=== PATIENT | male | born 1965 | race Caucasian/White ===

== ENCOUNTER 2024-06-08 10:07 | Inpatient (IN) | payer BC, SELFPAY ==
--- NOTE | 2024-06-08 | XR_ITS ---
Examination: MRI brain without intravenous contrast. Date and time of exam: June 09, 2024 1248 hours INDICATIONS: Onset vertigo slurred speech beginning yesterday Technique: Multiple axial and sagittal images of the brain obtained. Siemens high-resolution 1.5 Jesica short bore scanners utilized. Sagittal sections, T1-weighted, TR 500, TE 14, are performed. Axial sections proton-density and T2-weighted have been obtained. Inversion recovery axial images, TR 9, 260, TE 111, TI 2500. Diffusion weighted images, axial sections, TR 4800, TE 128, B value 1000 Axial sections, ADC map, TR 4800, TE 128 Findings: Enlargement of the sella turcica is not present. The optic chiasm and infundibular are not remarkable. Prepontine and interpeduncular cisterns are not enlarged. There is no localized enlargement of the medulla or leigh ann. Fourth ventricle and cerebellar tonsils appear normal in position. No subacute area of hemorrhage density is seen. Mass in the cerebellopontine angle region is not evident. Globes symmetrical. Orbital musculature including medial lateral rectus muscles do not exhibit abnormality. Diffusion-weighted images demonstrate 16mm focus restricted diffusion right thalamus. Increased white matter signal prominent Mass effect upon the ventricular system is not identified. Impression: 16mm acute right thalamic infarct
[2024-06-08 10:12] VITALS: BMI 40.6
--- NOTE | 2024-06-08 10:53 | XR_ITS ---
Examination: CT brain head without contrast. 2-D sagittal coronal reconstructions Date and time of exam:June 08, 2024 1105 hours INDICATIONS: Onset dizziness slurred speech beginning this morning CTDI: vol (mGy):58.9 DLP: (mGycm):1102 Technique: Multiple CT axial sections of the brain have been obtained, 5 mm slice thickness. Contrast has not been administered. 2-D sagittal, coronal reconstructions have been obtained Low dose protocols were performed. One or more of the following dose reduction techniques were used; automated exposure control, adjustment of the mA and/or KV according to patient size, use of iterative reconstruction technique. Findings: No significant ventricular enlargement. Intra-axial or extra-axial hemorrhage density is not seen. No mass effect or midline shift Basal cisterns are not remarkable. Fourth ventricle is midline. Cranial vault intact. Slightly prominent posterior contrast opacified sagittal sinus axial image 7 Impression: Negative for acute hemorrhage, mass effect or midline shift Mildly prominent posterior opacified sagittal sinus, axial image 7, clinical correlation advised Given the patient's presentation, consider brain MRI MRA without contrast, stroke protocol, follow-up
--- NOTE | 2024-06-08 10:54 | EDRME_ITS ---
Rapid Medical Screening Exam [facility] Arrival date/time: 06/08/24 10:07 59-year-old male with no known medical history presents to the emergency room with a chief complaint of dizziness, lightheadedness, slurred speech x 2 days. Patient states 2 days ago he had an episode of acute dizziness followed by slurred speech and unable to keep his balance. Patient states minutes later he felt better and decided not to come to the emergency room until today when his knees told him that he does not sound the same and his speech sounds slurred. Patient denies any unilateral numbness or any symptoms that began today. I have greeted and performed a focused initial assessment of this patient. A comprehensive ED assessment and evaluation of the patient, analysis of all test results, and completion of the medical decision making process will be conducted by additional ED providers. Chief Complaint: Dizziness Vital signs reviewed by provider: Yes
[2024-06-08] MEDS: MECLIZINE HCL 25 MG TABLET PO (11:00)
[2024-06-08 11:09] VITALS: BP 187/121; PULSE 98; RESP 19; TEMP 36.8; O2SAT 98
[2024-06-08 11:42] LABS: Alanine Aminotransferase 18 U/L (10-49); Albumin, Serum 4.7 gm/dL (3.5-5.0); Albumin/Globulin Ratio 1.6 (1.2-2.2); Alkaline Phosphatase 95 U/L (46-116); Anion Gap 7 (7-16); Aspartate Amino Transferase 20 U/L (0-34); BUN/Creatinine Ratio 9 Ratio (12-20); Bilirubin,Total 0.8 mg/dL (0.3-1.2); Blood Urea Nitrogen 11 mg/dL (9-23); Calcium 9.6 mg/dL (8.3-10.6); Calcium (Corrected) 9.6 mg/dL (8.5-10.1); Carbon Dioxide 26.8 mMol/L (20.0-31.0); Chloride 106 mMol/L (98-107); Creatinine (Component) 1.2 mg/dL (0.6-1.3); Estimated Creatinine Clearance 105.4 mL/min (>60); Glucose 106 mg/dL (74-106); Osmolality,Calculated 278 (275-295); Potassium 4.1 mMol/L (3.4-5.1); Sodium 140 mMol/L (136-145); Total Protein 7.7 gm/dL (5.7-8.2); Troponin I < 0.020 ng/mL (0.0-0.045); eGFR > 60 See Note
[2024-06-08 11:44] LABS: Basophils # (Auto) 0.1 Thou/mm3 (0.0-0.2); Basophils % (Auto) 1 % (0-2.5); Eosinophils # (Auto) 0.1 Thou/mm3 (0.0-0.5); Eosinophils % (Auto) 2 % (0-10); Hematocrit 48.6 % (41.0-53.0); Hemoglobin 16.2 g/dL (13.5-16.0); Immature Granulocytes % (Auto) 0 % (0-0); Immature Granulocytes Auto 0.01 Thou/mm3 (0.00-0.00); Lymphocytes # (Auto) 1.6 Thou/mm3 (1.0-4.8); Lymphocytes % (Auto) 23 % (10-50); Mean Corpuscular HGB Conc 33.3 g/dl (31.0-37.0); Mean Corpuscular Hemoglobin 30.3 pg (25.0-35.0); Mean Corpuscular Volume 91 fL (80-100); Monocytes # (Auto) 0.6 Thou/mm3 (0.0-0.8); Monocytes % (Auto) 9 % (0-12); Neutrophils # (Auto) 4.4 Thou/mm3 (1.8-7.7); Neutrophils % (Auto) 65 % (37-80); Nucleated Red Blood Cell % 0 /100 WBC (0); Platelet Count 301 Thou/mm3 (140-440); Red Blood Count 5.35 Miln/mm3 (4.50-5.90); White Blood Count 6.7 Thou/mm3 (3.8-10.6)
[2024-06-08 11:47] LABS: B-Type Natriuretic Peptide < 20 pg/mL (0-100)
[2024-06-08 14:36] VITALS: BP 175/115; PULSE 98; RESP 16; TEMP 36.9; O2SAT 94
--- NOTE | 2024-06-08 14:53 | EDNOTE_ITS ---
<Statement entered by Lisa Bustamante MD - 06/08/24 17:41> As co-signing physician, I was present and available for consult prn. I concur with the plan and care as documented by the midlevel provider. ED General RME/HPI General Chief complaint: Dizziness Stated complaint: FALL YESTERDAY DIZZINESS & SLURRED SPEACH TODAY Time Seen by Provider: 06/08/24 14:36 Arrival date/time: 06/08/24 10:07 CC: Altered balance of lower extremities and slurred speech HPI last known normal was June 06, 2024 at approximately 6 PM. Since then the patient has been noted by family members to have slurred speech and is noticed that he has continuous gait problems while denying dizziness. Patient denies fall shortness of breath difficulty breathing altered mentation. RME / HPI RME / HPI narrative: 06/08/24 10:07 59-year-old male with no known medical history presents to the emergency room with a chief complaint of dizziness, lightheadedness, slurred speech x 2 days. Patient states 2 days ago he had an episode of acute dizziness followed by slurred speech and unable to keep his balance. Patient states minutes later he felt better and decided not to come to the emergency room until today when his knees told him that he does not sound the same and his speech sounds slurred. Patient denies any unilateral numbness or any symptoms that began today. I have greeted and performed a focused initial assessment of this patient. A comprehensive ED assessment and evaluation of the patient, analysis of all test results, and completion of the medical decision making process will be conducted by additional ED providers. Related Data Previous Rx's ?Medication ?Instructions ?Recorded hydrocodone 5 mg-acetaminophen 325 1 tab PO Q6H PRN pa in #10 tabs /05/20 mg tablet ([place]) tamsulosin 0.4 mg capsule (Flomax) 0.4 mg PO QDAY #30 caps 04/30/19 hydrocodone 5 mg-acetaminophen 325 1 tab PO Q4H PRN pa in #14 tabs 03/06/20 mg tablet ([place]) Allergies Allergy/AdvReac Type Severity Reaction Status Date / Time No Known Allergies Allergy Verified 06/08/24 10:12 Review of Systems Review of Systems Narrative Review of Systems: GEN: No fever, no chills, no weight loss EYES: No discharge, no visual changes, no pain HEENT: No ear pain, no congestion, no sore throat PULM: No shortness of breath, no cough, no congestion CV: No chest pain, no dyspnea on exertion, no palpitations GI: No nausea, no vomiting, no diarrhea, no pain, no constipation : No frequency, no urgency, no dysuria MUSC/SKEL: No joint pain, no back pain SKIN: No rash PSYCH: No hallucinations, no depression HEME/LYMPH: No easy bleeding or bruising tendencies NEURO: No weakness, no headache Past Medical History Past Medical History CARDIAC: Negative Cardiac Disorders or Congestive Heart Failure RESPIRATORY: Negative Chronic Obstructive Pulmonary Disease (COPD) or Asthma GENITOURINARY: Positive Kidney Stones; Negative Renal Disease ENDOCRINE: Negative Diabetes Mellitus Type 1 or Diabetes Mellitus Type 2 HEMATOLOGIC: Negative Sickle Cell Disease Social History SMOKING STATUS: Never smoker SUBSTANCE USE: does not use ED Exam Narrative Physical exam: [General: Morbidly obese not in any acute distress Head normocephalic HEENT: Eyes pupils are PERRLA EOMs intact mouth pink moist membranes uvula is midline swallow symmetrical phonation is normal. All other HEENT is within acceptable limits Neck is supple nontender no JVD no edema Chest equal chest rise nontender to palpation Respiratory: Clear to auscultation no wheezes crackles or rubs CV: Rate rhythm is regular no murmurs rubs or clicks Abdomen is distended secondary to body habitus soft nontender no masses positive bowel sounds all 4 quadrants Back: No CVA tenderness no spinous process tenderness from cervical spine thoracic and lumbar spine Skin: Intact no petechiae rash induration ulceration or crepitus Extremities: Moving all extremity against resistance cap refill less than 2 seconds neurosensory intact Neuro: Awake alert oriented x3 Glascow coma 15 no focal deficits] subtle slurred speech, no word salad no difficulty with word or sentence assembly. Syntax is appropriate all responses to questions are appropriate. Course Quality Measures none Orders Category Date Time Status Bedside Blood Glucose NOW Care 06/08/24 10:53 Active EKG (ED ONLY) *Do not use* NOW Care 06/08/24 10:53 Completed MRI Screening NOW Care 06/08/24 14:52 Active Consult to Neurology / Tele-Neurology Stat Cons 06/08/24 15:[address] head/brain wo con Stat Exams 06/08/24 10:53 Completed EKG (ED Only) Stat Exams 06/08/24 10:53 Ordered MR head/brain wo con Stat Exams 06/08/24 Ordered BNP [B-Type Natriuretic Peptide] Stat Lab 06/08/24 11:12 Completed CBC Stat Lab 06/08/24 11:12 Completed Comprehensive Metabolic Panel Stat Lab 06/08/24 11:12 Completed Troponin I Stat Lab 06/08/24 11:12 Completed Urinalysis Stat Lab 06/08/24 10:53 Ordered Urine Culture Stat Lab 06/08/24 10:53 Ordered Aspirin Med 06/08/24 15:01 Discontinued 325 mg PO X1 ONE Meclizine HCl [Antivert] Med 06/08/24 10:53 Discontinued 25 mg PO X1 ONE hydrALAZINE INJ [Apresoline Inj] Med 06/08/24 14:58 Discontinued 20 mg IV X1 ONE Vital Signs Vital signs: Vital Signs Temperature 98.3 F 06/08/24 11:09 Pulse Rate 98 06/08/24 11:09 Respiratory Rate 19 06/08/24 11:09 Blood Pressure 187/121 H 06/08/24 11:09 Pulse Oximetry (%) 98 06/08/24 11:09 Oxygen Delivery Method Room Air 06/08/24 11:09 [facility] Patient data External records reviewed:: [facility] previous records Clinical information provided by:: patient Social determinants that could affect healthcare access:: none Patient has the following chronic illnesses:: Morbid obesity How is presenting disease/condition affected by chronic disease/condition?: u neffected by Evaluation data The following diagnostics were reviewed and interpreted by me:: lab results and radiology exam(s) Lab and/or radiology exams considered but not ordered:: CBC shows no acute leukocytosis anemia thrombocytopenia CMP shows no acute electrolyte imbalances renal impairment transaminitis or T. bili elevation Troponin is negative BNP is negative CT head is negative for any acute finding. Interpretation Summary: Highly suspicious for stroke probably posterior. Patient's case discussed with Dr. Mcclain, neurologist who wants the patient started on aspirin get his pressures down admit to the hospital with an MRI ordered. Patient's case and clinical finding laboratory results all discussed with , who agrees to accept the patient for admission none Medications Medications considered but not ordered:: None Medication administrations:: Medication Administration History Discontinued Medications Aspirin (Aspirin 325 Mg Tablet) 325 mg PO X1 ONE Stop: 06/08/24 15:02 Last Admin: 06/08/24 15:11 Dose: 325 mg Documented By: LP Hydralazine HCl (Hydralazine Inj 20 Mg/Ml Vial) 20 mg IV X1 ONE Stop: 06/08/24 14:59 Last Admin: 06/08/24 15:10 Dose: 20 mg Documented By: LP Meclizine HCl (Meclizine Hcl 25 Mg Tablet) 25 mg PO X1 ONE Stop: 06/08/24 10:54 Last Admin: 06/08/24 11:00 Dose: 25 mg Documented By: ALEKSANDRA None Consultations Consultation(s) initiated? (list below): Yes Consultation #1 (Physician, Specialty, Details): The garage and Time: 15:00 Diagnosis Differential Diagnosis ED Complaint MDM: CVA TIA hypertension Most likely diagnosis given after review of the tests above:: CVA hypertension undiagnosed Admission Indicated Admission indicated?: indicated Explain why admission is indicated or not indicated:: Requires further medical management Admission Request Was there a request for admission?: No Disposition Plan Disposition Plan: Admit Medical Decision Making Differential Diagnosis Differential Diagnosis: CVA TIA hypertension Lab Data 06/08/24 11:12 06/08/24 11:12 Labs: Lab Results 06/08/24 Range/Units 11:12 WBC 6.7 (3.8-10.6) Thou/mm3 RBC 5.35 (4.50-5.90) Miln/mm3 Hgb 16.2 H (13.5-16.0) g/dL Hct 48.6 (41.0-53.0) % MCV 91 (80-100) fL MCH 30.3 (25.0-35.0) pg MCHC 33.3 (31.0-37.0) g/dl RDW Std Deviation 43.0 (35.1-43.9) fL Plt Count 301 (140-440) Thou/mm3 Neut % (Auto) 65 (37-80) % Lymph % (Auto) 23 (10-50) % [place] % (Auto) 9 (0-12) % Eos % (Auto) 2 (0-10) % Baso % (Auto) 1 (0-2.5) % Neut # (Auto) 4.4 (1.8-7.7) Thou/mm3 Lymph # (Auto) 1.6 (1.0-4.8) Thou/mm3 [place] # (Auto) 0.6 (0.0-0.8) Thou/mm3 Eos # (Auto) 0.1 (0.0-0.5) Thou/mm3 Baso # (Auto) 0.1 (0.0-0.2) Thou/mm3 Immature Gran # (Auto) 0.01 H (0.00-0.00) Thou/mm3 Absolute Nucleated RBC 0.00 (0.00-0.00) Thou/mm3 Immature Gran % 0 (0-0) % Nucleated RBC % 0 (0) /100 WBC Sodium 140 (136-145) mMol/L Potassium 4.1 (3.4-5.1) mMol/L Chloride 106 (98-107) mMol/L Carbon Dioxide 26.8 (20.0-31.0) mMol/L Anion Gap 7 (7-16) BUN 11 (9-23) mg/dL Creatinine 1.2 (0.6-1.3) mg/dL Estim Creat Clear Calc 105.4 (>60) mL/min eGFR > 60 (60 - ) See Note BUN/Creatinine Ratio 9 L (12-20) Ratio Glucose 106 (74-106) mg/dL Calculated Osmolality 278 (275-295) Calcium 9.6 (8.3-10.6) mg/dL Corrected Calcium 9.6 (8.5-10.1) mg/dL Total Bilirubin 0.8 (0.3-1.2) mg/dL AST 20 (0-34) U/L ALT 18 (10-49) U/L Alkaline Phosphatase 95 (46-116) U/L Troponin I < 0.020 (0.0-0.045) ng/mL B-Natriuretic Peptide < 20 (0-100) pg/mL Total Protein 7.7 (5.7-8.2) gm/dL Albumin 4.7 (3.5-5.0) gm/dL Globulin 3.0 (2.3-3.5) gm/dL Albumin/Globulin Ratio 1.6 (1.2-2.2) Discharge Plan Plan Patient Disposition: Other Care w/in Hosp ([facility]) Prescriptions/Referrals Prescriptions/Med Rec: No Action tamsulosin [Flomax] 0.4 mg capsule 0.4 mg PO QDAY Qty: 30 0RF hydrocodone-acetaminophen [[place]] 5-325 mg tablet 1 tab PO Q6H MDD 4 PRN (Reason: pain) Qty: 10 0RF hydrocodone-acetaminophen [[place]] 5-325 mg tablet 1 tab PO Q4H MDD 4 PRN (Reason: pain) Qty: 14 0RF Referrals: Warner Abbasi MD [Primary Care Provider] - In 1 week Problem List Clinical Impression: Hypertension, CVA (cerebral vascular accident) Patient/Caregiver Discharge Instructions Print Language: Australian Stand Alone Forms: Hannah Award Info., Patient Portal Info Letter PA/DIE CUTTER DIAMOND Supervising Physician PA/DIE CUTTER DIAMOND Supervising Physician: Polo Matthew ENP
[2024-06-08 15:10] VITALS: BP 175/115; PULSE 91
[2024-06-08] MEDS: hydrALAZINE INJ 20 MG/ML VIAL IV (15:10)
[2024-06-08] MEDS: Aspirin 325 MG TABLET PO (15:11)
--- NOTE | 2024-06-08 16:25 | ESHP_ITS ---
<Statement entered by Crow Everett MD - 06/10/24 07:58> Senior Resident Attestation: I supervised/discussed management plan with manager internship physician Dr. Stein, and was involved in the care of this patient. I personally saw and examined the patient and discussed the assessment and plan with the entire medicine team, including my attending. I agree with the assessment and plan as documented. Patient's care was discussed with attending physician, Dr. Le. Crow Everett MD PGY-2. Documentation for date of: 06/08/24 HPI History of Present Illness Chief complaint: Dizziness History of present illness: 59-year-old male with significant past medical history of hypertension, BPH presented to the hospital with chief complaints of dizziness since 2 days and slurring of speech since 1 day. Patient was apparently normal 2 days ago, on 06/06/2024 patient is watching television and when he tried to walk to the bathroom he noticed to sway onto his left side, felt dizzy following which he will lie down for few minutes and later the dizziness subsided. Later he did not feel any swaying but on the day of admission, his niece noted mild slurring of speech for which patient came to the hospital. Patient denies weakness in the extremities, involuntary movements, deviation of mouth, sensory loss, bowel or bladder incontinence, hearing loss, tinnitus, headache ED course: - Vitals at the time of admission blood pressure 187/121 mmHg, pulse rate 98 bpm, respiratory rate 19/min, temperature 98.3 ?F, SpO2 98% with room air - Labs done at the time of admission were significant for Hb 16.2 - Head CT is negative for acute stroke, hemorrhage and showed mild opacification in the posterior sagittal sinus Past medical history: Hypertension, BPH Past surgical history: Not significant Social history: Denies smoking, alcohol, other illicit drug abuse. Allergies: NKDA Family history: Positive for porphyria in father Review of Systems Review of Systems Systems Reviewed: All systems reviewed, normal except as documented Past Medical History Past Medical History CARDIAC: Negative Cardiac Disorders or Congestive Heart Failure RESPIRATORY: Negative Chronic Obstructive Pulmonary Disease (COPD) or Asthma GENITOURINARY: Positive Kidney Stones; Negative Renal Disease ENDOCRINE: Negative Diabetes Mellitus Type 1 or Diabetes Mellitus Type 2 HEMATOLOGIC: Negative Sickle Cell Disease Social History SMOKING STATUS: Never smoker SUBSTANCE USE: does not use Exam Vital Signs Temp Pulse Resp BP Pulse Ox O2 Del Method 98.4 F 91 16 175/115 H 94 L Room Air 06/08/24 14:36 06/08/24 15:10 06/08/24 14:36 06/08/24 15:10 06/08/24 14:36 06/08/24 14:36 Narrative Exam General: Awake. HEENT: Normocephalic, atraumatic, mucous membranes moist. Heart: Regular rate and rhythm, no murmurs. Lungs: Clear to auscultation with no wheezing or crackles. Abdomen: Soft, nondistended, nontender, positive bowel sounds. ?No guarding or rebound tenderness. Neurologic: Alert and oriented x3, no gross neurological deficit, and patient able to move all 4 extremities. Noted mild swaying to the left on closure of his eyes Extremities: No edema. Skin: No rash or ecchymoses. Results: Labs 06/09/24 05:15 06/09/24 05:15 Labs: Short CBC 06/08/24 Range/Units 11:12 WBC 6.7 (3.8-10.6) Thou/mm3 Hgb 16.2 H (13.5-16.0) g/dL Hct 48.6 (41.0-53.0) % Plt Count 301 (140-440) Thou/mm3 BMP 06/08/24 11:12 Sodium 140 Potassium 4.1 Chloride 106 Carbon Dioxide 26.8 BUN 11 Creatinine 1.2 Glucose 106 Calcium 9.6 Cardiac Enzymes 06/08/24 Range/Units 11:12 Troponin I < 0.020 (0.0-0.045) ng/mL Liver Function 06/08/24 Range/Units 11:12 Total Bilirubin 0.8 (0.3-1.2) mg/dL AST 20 (0-34) U/L ALT 18 (10-49) U/L Alkaline Phosphatase 95 (46-116) U/L Albumin 4.7 (3.5-5.0) gm/dL Quality Measures Quality Measures none Medications Home Medications and Allergies Home Medications ?Medication ?Instructions ?Recorded ?Confirmed ?Type lisinopril 20 mg tablet 20 mg PO QDAY 06/08/2406/08 History Allergies Allergy/AdvReac Type Severity Reaction Status Date / Time No Known Allergies Allergy Verified 06/08/24 10:12 Visit Medications Acetaminophen (Acetaminophen 325 Mg Tablet) 650 mg PO Q6H PRN PRN Reason: Fever >101.5 Stop: 07/08/24 16:15 Aspirin (Aspirin Ec 81 Mg Tabec) 81 mg PO QDAY CARRILLO Stop: 07/09/24 08:59 Atorvastatin Calcium (Atorvastatin Calcium 20 Mg Tablet) 40 mg PO HS CARRILLO Stop: 07/08/24 20:59 Clopidogrel Bisulfate (Clopidogrel Bisulfate 75 Mg Tablet) 75 mg PO QDAY CARRILLO Stop: 07/09/24 08:59 Docusate Sodium (Docusate Sod 100 Mg Capsule) 100 mg PO QDAY PRN; Protocol PRN Reason: CONSTIPATION Stop: 07/08/24 16:15 Labetalol HCl (Labetalol Inj 5 Mg/Ml Vial 20 Ml) 10 mg IVP X1 PRN PRN Reason: sbp>220 Stop: 07/08/24 16:22 Ondansetron HCl (Ondansetron Inj 2 Mg/Ml Inj 2 Ml) 4 mg IV Q6H PRN; Protocol PRN Reason: NAUSEA OR VOMITING Stop: 07/08/24 16:15 Discontinued Medications Aspirin (Aspirin 325 Mg Tablet) 325 mg PO X1 ONE Stop: 06/08/24 15:02 Last Admin: 06/08/24 15:11 Dose: 325 mg Enoxaparin Sodium (Enoxaparin Sod Inj 40 Mg/0.4 Ml Syringe) 40 mg SC QDAY CARRILLO Stop: 06/23/24 08:59 Hydralazine HCl (Hydralazine Inj 20 Mg/Ml Vial) 20 mg IV X1 ONE Stop: 06/08/24 14:59 Last Admin: 06/08/24 15:10 Dose: 20 mg Meclizine HCl (Meclizine Hcl 25 Mg Tablet) 25 mg PO X1 ONE Stop: 06/08/24 10:54 Last Admin: 06/08/24 11:00 Dose: 25 mg Assessment & Plan Plan 59-year-old male with significant past medical history of hypertension, BPH presented to the hospital with chief complaints of dizziness since 2 days and slurring of speech since 1 day admitted for stroke rule out # Vertigo, resolved # To rule out posterior stroke - Presented to the hospital with complaints of 1 episode of vertigo 2 before the day of admission - Patient noted to have slurred speech by his niece on the day of admission - Vitals at the admission are stable except for elevated blood pressure 187/121 mmHg - Labs are significant for hemoglobin 16.2 - Head CT is negative for acute infarct/hemorrhage. Noted mild opacification in the posterior sagittal sinus - Received 325 mg aspirin in the ED Plan - Started on aspirin and clopidogrel - Started on atorvastatin 40 Mg p.o. at bedtime - Will allow permissive hypertension for today, labetalol as needed if blood pressure greater than 220/120 mmHg - MR brain is ordered - Echo ordered - HbA1c, lipid profile, TSH, B12 ordered - Dr Mcclain is consulted, will appreciate her recommendations - Physical therapy referral done # History of hypertension - Patient is using lisinopril 20 Mg p.o. daily at home - Will allow permissive hypertension for today and will restart blood pressure medications tomorrow - Labetalol as needed if blood pressure greater than 220/120 mmHg # History of BPH - Patient is using tamsulosin 0.4 Mg p.o. daily at home - Medication reconciliation is ordered - Will start tamsulosin once med rec is done Hospital Maintenance: Dispo: Telemetry DVT ppx: SCD GI ppx: Not needed Diet: Low-sodium IV lines: Peripheral Code status: Full code Patient plan of care was discussed with the attending physician, Dr. Le and senior resident Dr. Marguerite Stein, PGY1 Attending Provider Attestation/Addendum I attest that I was physically present for the evaluation, physical examination, lab and imaging review of the patient with the residents. I discussed the case with the residents and agree with the findings and plans of care as documented above. Patient is a 59 years old male with past medical history of hypertension, BPH who presents to the ED with complaints of dizziness, slurring of speech for 4 2 days. His family also noticed that he has asymmetry of his face. On exam, patient has mild asymmetry of his face. Sensation is intact, strength is normal and equal bilaterally. In the ED, blood pressure was 187/121, rest of the vitals were within normal limits. Head CT was obtained which was negative for acute hemorrhage, mass effect or midline shift but showed mild opacification in the posterior sagittal sinus. We will admit the patient to evaluate for dizziness and to rule out stroke. Started on antiplatelets and statin. Brain MRI ordered. We will also obtain hemoglobin A1c, lipid panel, echocardiography and neurology consult. Physical therapy and speech therapy referral ordered. We will allow for permissive hypertension for now, plan to restart antihypertensives tomorrow if patient continues to be hypertensive. Shameka eL MD
[2024-06-08 17:14] LABS: Collection Type, Urine Clean Catch; Squamous Epithelial Cell,Urine 0 /hpf (0-5)
[2024-06-08 17:27] LABS: Bilirubin,Urine Negative (Negative); Blood,Urine Negative (Negative); Clarity,Urine Clear (Clear/Hazy); Color,Urine Lt-Yellow (Lt Yel-Yel); Glucose, Urine Negative (Negative); Ketones,Urine Trace (Negative); Leukocyte Esterase,Urine Negative (Negative); Nitrite,Urine Negative (Negative); PH,Urine 6.5 (5.0-7.0); Protein,Urine Negative (Neg - Trace); RBC,Urine 5 /hpf (0-3); Specific Gravity,Urine 1.016 (1.001-1.035); Urobilinogen,Urine Negative mg/dL (0.0-1.0); WBC,Urine 2 /hpf (0-5)
[2024-06-08 18:00] VITALS: BP 144/89; PULSE 105; RESP 20; TEMP 36.8; O2SAT 94
--- NOTE | 2024-06-08 18:47 | PC.NURSE ---
REPORT CALLED TO YOLA ON TELE. PT WILL BE TRANSFERRED TO ROOM 271. DR. LOAIZA AT BEDSIDE NOT TO ASSESS PT.
[2024-06-08 20:00] VITALS: BP 145/98; PULSE 101; PULSE 103; RESP 13; TEMP 36.7; O2SAT 96
[2024-06-08] MEDS: ATORVASTATIN CALCIUM 20 MG TABLET 40 MG PO (20:05)
[2024-06-08 20:35] VITALS: BP 167/95; PULSE 110; RESP 17; TEMP 36.7; O2SAT 97
--- NOTE | 2024-06-08 21:54 | PD.RESEVENT ---
Documentation for date of: 06/08/24 Event Note Event Note: At approximately 2030 p.m. code STAR was called due to patient falling. Fall was witnessed by the Adelita RN, patient went to the bathroom, did not hit his head, reported that he felt dizzy after standing up, did not lose consciousness. On examination he is AO x 3, follows commands, strength is 5 out of 5 in extremities. Patient has mild facial droop and slurring of speech, which were reported by the patient to have started a few days ago. He also reports that dizziness started a few days ago. Patient denies pain, weakness, numbness. Blood pressure was in the range of 170s/110s, saturated well on room air. CT head today was negative for acute hemorrhage, mass effect or midline shift. Will continue with current management and fall precautions. Plan of care discussed with attending Dr. Cannon. Esther Shields MD, PGY 1.
[2024-06-08] MEDS: ACETAMINOPHEN 325 MG TABLET 650 MG PO (22:21)
--- NOTE | 2024-06-08 23:00 | PD.VCONSULT1 ---
Telemedicine visit statement This visit was conducted with the use of interactive audio and video telecommunications system that permits real time communication between the patient and the provider. Patient's verbal consent for virtual visit was obtained on 06/08/24 at 2300. Meds Home Medications and Allergies Home Medications ?Medication ?Instructions ?Recorded ?Confirmed ?Type lisinopril 20 mg tablet 20 mg PO QDAY 06/08/24 06/08/24 History Allergies Allergy/AdvReac Type Severity Reaction Status Date / Time No Known Allergies Allergy Verified 06/08/24 10:12 Virtual exam Vital Signs Temp Pulse Resp BP Pulse Ox O2 Del Method 98.0 F 103 H 13 145/98 H 96 Room Air 06/08/24 20:00 06/08/24 20:00 06/08/24 20:00 06/08/24 20:00 06/08/24 20:00 06/08/24 20:00 Results Labs 06/08/24 11:12 06/08/24 11:12 Labs: Short CBC 06/08/24 Range/Units 11:12 WBC 6.7 (3.8-10.6) Thou/mm3 Hgb 16.2 H (13.5-16.0) g/dL Hct 48.6 (41.0-53.0) % Plt Count 301 (140-440) Thou/mm3 BMP 06/08/24 11:12 Sodium 140 Potassium 4.1 Chloride 106 Carbon Dioxide 26.8 BUN 11 Creatinine 1.2 Glucose 106 Calcium 9.6 Cardiac Enzymes 06/08/24 Range/Units 11:12 Troponin I < 0.020 (0.0-0.045) ng/mL Liver Function 06/08/24 Range/Units 11:12 Total Bilirubin 0.8 (0.3-1.2) mg/dL AST 20 (0-34) U/L ALT 18 (10-49) U/L Alkaline Phosphatase 95 (46-116) U/L Albumin 4.7 (3.5-5.0) gm/dL Urine 06/08/24 Range/Units 17:00 Urine Color Lt-Yellow (Lt Yel-Yel) Urine Clarity Clear (Clear/Hazy) Urine pH 6.5 (5.0-7.0) Ur Specific [place] 1.016 (1.001-1.035) Urine Protein Negative (Neg - Trace) Urine Glucose (UA) Negative (Negative)
--- NOTE | 2024-06-08 23:08 | PD.NEUROCONS ---
History of Present Illness Data of Consult Requesting Physician: Shameka Le MD Primary Care Provider: Warner Abbasi MD Consult Narrative History of present illness: Mr. Escaalnte is a 59-year-old male with hypertension, BPH presented to the ER with complaints of dizziness for 2 days and slurring of speech for 1 day. Patient was apparently normal 2 days ago, on 06/06/2024 when he was watching television and when he tried to walk to the bathroom he noticed to sway onto his left side, felt dizzy following which he went to lie down for few minutes and later the dizziness subsided. He was able to walk with his family 1 mile without any support as he did not feel any imbalance but today, his niece noted mild slurring of speech for which patient came to the hospital. Patient denies any paresthesias or weakness in the extremities, dysphagia, hearing loss, tinnitus, or headache. No recent illnesses or sick contacts reported. No medication changes recently. Workup in the ER: - Vital signs: Blood pressure 187/121 mmHg, pulse rate 98 bpm, respiratory rate 19/min, temperature 98.3 ?F, SpO2 98% with room air - Labs: CBC: Nothing significant other than Hb 16.2, CMP unremarkable - Imaging study: Head CT is negative for acute stroke, hemorrhage and showed mild opacification in the posterior sagittal sinus Neurology was consulted to evaluate further. Patient is in the process of getting MRI brain to evaluate for posterior fossa. cc:: cc: Shameka Le MD Review of Systems Review of Systems Systems Reviewed: All systems reviewed, normal except as documented Meds Home Medications and Allergies Home Medications ?Medication ?Instructions ?Recorded ?Confirmed ?Type lisinopril 20 mg tablet 20 mg PO QDAY 06/08/24 06/08/24 History Allergies Allergy/AdvReac Type Severity Reaction Status Date / Time No Known Allergies Allergy Verified 06/08/24 10:12 Exam - Neurology Vital Signs Temp Pulse Resp BP Pulse Ox O2 Del Method 98.0 F 103 H 13 145/98 H 96 Room Air 06/08/24 20:00 06/08/24 20:00 06/08/24 20:00 06/08/24 20:00 06/08/24 20:00 06/08/24 20:00 Narrative Exam GENERAL APPEARANCE: Well-developed, obese built white male in no acute distress. HEENT: Normocephalic, atraumatic, extraocular movements intact. Pupils: Equal reacting to light and accommodation, NECK: Supple, no JVD or bruits. CARDIOVASULAR: Heart: S1, S2 heard, regular without S3-S4 or murmur no rubs or gallops. LUNGS/CHEST: Clear to auscultation bilaterally. No rails, rhonchi, or wheezing. Normal inspection. ABDOMEN: Soft, nontender, with normal bowel sounds. No pulsatile masses. No rebound, rigidity, or guarding. Normal inspection and palpation. EXTREMITIES: Normal inspection and palpation. No edema, clubbing or cyanosis. SKIN: Warm and dry without rashes. Normal inspection. MUSCULOSKELETAL: No cervical, thoracic, lumbar or midline bony tenderness. Normal inspection. NEURO: Alert, awake and oriented x3. Cranial nerves: II through XII grossly intact. Speech and language: Normal with no significant dysarthria or dysphasia. Motor system: Tone and bulk: Normal: Strength: 5 out of 5 in all 4 extremities; No pronator drift noted. Deep tendon reflexes: 2+ bilaterally symmetrical. Plantar reflex: Downgoing bilaterally. Sensory system: Intact to all modalities of sensation bilaterally. Coordination: Intact to [id number] and [id number] test bilaterally. No ataxia, no dysmetria, or dysdiadochokinesia noted. No intention tremors noted. Gait: Not tested. No signs of meningeal irritation noted. PSYCHIATRIC: Normal mood and affect. Results Labs 06/09/24 05:15 06/09/24 05:15 Labs: Short CBC 06/08/24 Range/Units 11:12 WBC 6.7 (3.8-10.6) Thou/mm3 Hgb 16.2 H (13.5-16.0) g/dL Hct 48.6 (41.0-53.0) % Plt Count 301 (140-440) Thou/mm3 BMP 06/08/24 11:12 Sodium 140 Potassium 4.1 Chloride 106 Carbon Dioxide 26.8 BUN 11 Creatinine 1.2 Glucose 106 Calcium 9.6 Cardiac Enzymes 06/08/24 Range/Units 11:12 Troponin I < 0.020 (0.0-0.045) ng/mL Liver Function 06/08/24 Range/Units 11:12 Total Bilirubin 0.8 (0.3-1.2) mg/dL AST 20 (0-34) U/L ALT 18 (10-49) U/L Alkaline Phosphatase 95 (46-116) U/L Albumin 4.7 (3.5-5.0) gm/dL Urine 06/08/24 Range/Units 17:00 Urine Color Lt-Yellow (Lt Yel-Yel) Urine Clarity Clear (Clear/Hazy) Urine pH 6.5 (5.0-7.0) Ur Specific [place] 1.016 (1.001-1.035) Urine Protein Negative (Neg - Trace) Urine Glucose (UA) Negative (Negative) Assessment & Plan Assessment and plan (1) CVA (cerebral vascular accident): Status: Acute Assessment and plan: Follow-up with MRI brain as it becomes available. Add aspirin and statin (2) Hypertension: Status: Chronic Assessment and plan: Continue with the permissive blood pressure control
--- NOTE | 2024-06-08 23:23 | PC.NURSE ---
patient called to use urinal and stand at bedside. I turned off bed alarm and assisted patient to standing postition. Patient stated he felt steady and I turned to give patient privacy, but stayed close by, 2 feet distance. I asked if he needed me to hold on to him in case he feels dizzy or unsteady, and as I was talking i see him lowering himself to the ground and as he got close, he dropped on his bottom. Patient stated nothing hurt and no injury and did not hit head. Apoorva star called overhead and 2 nurses assisted patient back to bed. Dr. Tinoco and Dr. Oliva came to bedside with charge nurse and data warehouse developer. did a stroke assessment. All limbs equal in strength, left facial droop and slight slurred speech with patient stated has been there for 2 days.
[2024-06-09] VITALS (7 sets, daily range): BP systolic 145–166; BP diastolic 85–120; PULSE 74–103; RESP 12–22; TEMP 35.9–36.6; O2SAT 94–98; BMI 39.8
[2024-06-09 05:52] LABS: Basophils % (Auto) 1 % (0-2.5); Eosinophils # (Auto) 0.1 Thou/mm3 (0.0-0.5); Eosinophils % (Auto) 2 % (0-10); Hemoglobin 15.2 g/dL (13.5-16.0); Immature Granulocytes % (Auto) 0 % (0-0); Immature Granulocytes Auto 0.01 Thou/mm3 (0.00-0.00); Lymphocytes % (Auto) 26 % (10-50); Mean Corpuscular HGB Conc 33.8 g/dl (31.0-37.0); Mean Corpuscular Hemoglobin 29.4 pg (25.0-35.0); Mean Corpuscular Volume 87 fL (80-100); Monocytes # (Auto) 0.8 Thou/mm3 (0.0-0.8); Monocytes % (Auto) 10 % (0-12); Neutrophils # (Auto) 4.8 Thou/mm3 (1.8-7.7); Neutrophils % (Auto) 62 % (37-80); Nucleated Red Blood Cell % 0 /100 WBC (0); Platelet Count 276 Thou/mm3 (140-440); RDW Standard Deviation 41.6 fL (35.1-43.9); Red Blood Count 5.17 Miln/mm3 (4.50-5.90); White Blood Count 7.8 Thou/mm3 (3.8-10.6)
[2024-06-09 06:11] LABS: Anion Gap 7 (7-16); BUN/Creatinine Ratio 11 Ratio (12-20); Blood Urea Nitrogen 11 mg/dL (9-23); Calcium 9.3 mg/dL (8.3-10.6); Carbon Dioxide 23.8 mMol/L (20.0-31.0); Cardiac Risk Estimate 4.6 RATIO (4.0-6.7); Chloride 108 mMol/L (98-107); Cholesterol 203 mg/dL (132-200); Estimated Creatinine Clearance 126.4 mL/min (>60); Glucose 112 mg/dL (74-106); HDL Cholesterol 44 mg/dL (40-60); LDL Cholesterol,Calculated 134 mg/dL (0-130); Osmolality,Calculated 277 (275-295); Potassium 3.6 mMol/L (3.4-5.1); Sodium 139 mMol/L (136-145); Thyroid Stimulating Hormone 1.18 uIU/mL (0.55-4.78); Triglycerides 123 mg/dL (30-150); eGFR > 60 See Note
[2024-06-09 06:12] LABS: Vitamin B12 348 pg/mL (211-911)
[2024-06-09 06:16] LABS: Glucose Estimated Average 114 mg/dL (80-131); Hemoglobin A1C 5.6 % Hgb (4.8-6.0)
[2024-06-09] MEDS: CLOPIDOGREL BISULFATE 75 MG TABLET PO (08:21)
[2024-06-09] MEDS: ASPIRIN EC 81 MG TABEC PO (08:21)
--- NOTE | 2024-06-09 10:19 | PC.SS ---
Patient Sami Escalante is a 59 Year old male admitted for Stroke R/O. SS met with patient at bedside to discuss discharge plan, Patient appeared to be alert and oriented. Patient reports he lives at home alone. patient reports his mother and father, Jaylan Escalante and Eve Escalante are surrogate decision makers [phone]. and PCP is Warner Abbasi. Patient reports he does not utilize any source of DME to assist with ambulation, patient is able to complete ADL's independently. At time of discharge patient will return back home, no further SS needs at the time. Next of kin: father, Jaylan Escalante and mother Eve Escalante Discharge Plan: Home
--- NOTE | 2024-06-09 11:34 | PD.RESPRO ---
Documentation for date of: 06/09/24 Subjective Subjective Interval history: Not overnight acute events This morning at the bedside, patient is AOx4, saturating well on room air, responding questions properly, Exam Vital Signs Temp Pulse Resp BP Pulse Ox O2 Del Method 96.9 F 74 18 166/109 H 98 Room Air 06/09/24 08:00 06/09/24 08:00 06/09/24 08:00 06/09/24 08:00 06/09/24 08:00 06/09/24 08:00 Narrative Exam General: No acute distress, well nourished, obese, AO x 4 alert, interactive. HEENT: NC/AT, PERRL, EOMI, Good conjugate gaze, moist mucous membranes, mild left facial drooping Neck: Supple, No masses, No adenopathy, carotid pulse 2+ bilaterally without bruits, No JVD, normal range of motion. Chest: Symmetrical, atraumatic, and with equal expansion , Nontender on palpation no deformity and no crepitus. CVS: S1 and S2 present, Regular rate and rhythm, No murmurs, rubs or gallops perceived during auscultation. Lungs: Normal respiratory effort, CTAB, no wheezing, rhonchi or rales perceived during auscultation, No intercostal or subcostal retraction. Abdomen : Soft, increased abdominal girth, no tenderness to palpation, no guarding ,no rebound, +BS. Extremities: No edema, warm well perfused, normal tone and ROM, sensation intact, cap refill less than 2, +2 dp equal bilaterally, able to move all 4 extremities spontaneously. Skin: Intact, no rashes, no lesions, no erythema or jaundice noted Neuro: AOx4, cranial nerves II through XII intact, reflex symmetric and sensation normal, mild left facial drooping, strength 4/5 on upper and lower left extremities, left [id number] test dysmetria, ambulation: Not tested, GCS 15 Psych: Labile mood and affect Objective Labs 06/11/24 05:18 06/10/24 04:20 Labs: Laboratory Results - last 24 hr 06/08/24 06/08/24 06/09/24 11:12 17:00 05:15 WBC 6.7 7.8 RBC 5.35 5.17 Hgb 16.2 H 15.2 Hct 48.6 45.0 MCV 91 87 MCH 30.3 29.4 MCHC 33.3 33.8 RDW Std Deviation 43.0 41.6 Plt Count 301 276 Neut % (Auto) 65 62 Lymph % (Auto) 23 26 [place] % (Auto) 9 10 Eos % (Auto) 2 2 Baso % (Auto) 1 1 Neut # (Auto) 4.4 4.8 Lymph # (Auto) 1.6 2.0 [place] # (Auto) 0.6 0.8 Eos # (Auto) 0.1 0.1 Baso # (Auto) 0.1 0.0 Immature Gran # (Auto) 0.01 H 0.01 H Absolute Nucleated RBC 0.00 0.00 Immature Gran % 0 0 Nucleated RBC % 0 0 Sodium 140 139 Potassium 4.1 3.6 D Chloride 106 108 H Carbon Dioxide 26.8 23.8 Anion Gap 7 7 BUN 11 11 Creatinine 1.2 1.0 Estim Creat Clear Calc 105.4 126.4 eGFR > 60 > 60 BUN/Creatinine Ratio 9 L 11 L Glucose [address] Glu mg/dL 114 Hemoglobin A1c 5.6 Calculated Osmolality 278 277 Calcium 9.6 9.3 Corrected Calcium 9.6 Total Bilirubin 0.8 AST 20 ALT 18 Alkaline Phosphatase 95 Troponin I < 0.020 B-Natriuretic Peptide < 20 Total Protein 7.7 Albumin 4.7 Globulin 3.0 Albumin/Globulin Ratio 1.6 Triglycerides 123 Cholesterol 203 H LDL Cholesterol, Calc 134 H HDL Cholesterol 44 Cholesterol/HDL Ratio 4.6 Vitamin B12 348 TSH 1.18 Ur Collection Type Clean Catch Urine Color Lt-Yellow Urine Clarity Clear Urine pH 6.5 Ur Specific [place] 1.016 Urine Protein Negative Urine Glucose (UA) Negative Urine Ketones Trace Urine Blood Negative Urine Nitrite Negative Urine Bilirubin Negative Urine Urobilinogen (Auto) Negative Ur Leukocyte Esterase Negative Urine RBC 5 H Urine WBC 2 Ur Squamous Epith Cells 0 Urine Bacteria None Quality Measures Quality Measures none Assessment & Plan Assessment Current Active Medications: Generic Name Dose Route Start Last Admin Trade Name Freq PRN Reason Stop Dose Admin Acetaminophen 650 mg 06/08/24 16:16 06/08/24 22:21 Acetaminophen 325 Mg Tablet PO 07/08/24 16:15 650 mg Q6H PRN Administration Fever >101.5 Aspirin 81 mg 06/09/24 09:00 06/09/24 08:21 Aspirin Ec 81 Mg Tabec PO 07/09/24 08:59 81 mg QDAY CARRILLO Administration Atorvastatin Calcium 40 mg 06/08/24 21:00 06/08/24 20:05 Atorvastatin Calcium 20 Mg Tablet PO 07/08/24 20:59 40 mg HS CARRILLO Administration Docusate Sodium 100 mg 06/08/24 16:16 Docusate Sod 100 Mg Capsule PO 07/08/24 16:15 QDAY PRN CONSTIPATION Protocol Labetalol HCl 10 mg 06/08/24 16:23 Labetalol Inj 5 Mg/Ml Vial 20 Ml IVP 07/08/24 16:22 X1 PRN sbp>220 Ondansetron HCl 4 mg 06/08/24 16:16 Ondansetron Inj 2 Mg/Ml Inj 2 Ml IV 07/08/24 16:15 Q6H PRN NAUSEA OR VOMITING Protocol Plan #Acute right thalamic infarct CT head showed mildly prominent posterior opacified sagittal sinus, negative for acute hemorrhage, mass effect or midline shift patient stated brain MRI showed 16mm acute right thalamic infarct, prominent increased white matter signal. Plan: ? Atorvastatin 80 mg daily ? Plavix 75 mg p.o. daily ? Aspirin 81 mg p.o. daily ? Physical therapy #Rule out acute demyelinating disease Brain MRI showed 16 mm acute right thalamic infarct and prominent white matter signal Plan: ? Lumbar puncture ? MRI cervical with and without contrast Patient discussed with my attending Dr Sarahi Fulton MD PGY-3 Disclaimer: Despite multiple revisions, due to the dictation software being used, the document bellow may not be free of grammatical errors including phonetic/typographic errors. However, this does not deter from our commitment to providing health care in the patient's best interest in mind. Attending Provider Attestation/Addendum I personally have seen and examined the patient at the bedside and I agree with resident's findings, assessment and plan of care. Reassurance given to the patient regarding the findings on the MRI showing right thalamic infarct, that could explain his lack of coordination involving the left upper extremity. As the MRI findings are suspicious for [employer] demyelinating disease, we will plan to do lumbar puncture tomorrow after getting informed consent from the patient. Continue with aspirin, Plavix and statin
--- NOTE | 2024-06-09 12:59 | PC.PT ---
Patient is safe to ambulate to the bathroom and to sit up in a chair at bedside with a FWW and 1 staff assist. RN and LABOR CONTRACT ANALYST made aware.
--- NOTE | 2024-06-09 13:37 | PC.SS ---
SS follow up note; SS was contacted by CONNOR Acosta and he informed SS that patient is open to Acute Rehabs. SS submitted Acute Rehabs through [facility] platform.
[2024-06-09] MEDS: ACETAMINOPHEN 325 MG TABLET 650 MG PO (14:59)
--- NOTE | 2024-06-09 15:02 | PC.SS ---
SS follow up note; SS met with patient and family at bedside and provided Acute Rehab choices, family and patient would like to discharge to [facility]. SS contacted Josseline from [facility] and informed SS they will submit for auth. Patient is not medically cleared at the time.
--- NOTE | 2024-06-09 15:20 | PD.RESPRO ---
Documentation for date of: 06/09/24 Subjective Subjective Interval history: Patient is seen and examined at bedside Overnight, patient tried to move from bed to the bathroom during which he felt like falling down but did not have any episodes of falling Denies any other complaints as of today Vitals are stable except for mildly elevated blood pressures. Labs are unremarkable except for mildly elevated cholesterol and LDL MRI done today showed infarct in the right thalamus Dr Mcclain was consulted and recommended to continue dual antiplatelets and increase the dose of atorvastatin to 80 Mg Started on lisinopril 20 Mg p.o. daily, his home medication as patient already past 48 hours for permissive hypertension Physical therapy referral is done. Pending Dr. Mcclain's further recommendations and Echo study. Exam Vital Signs Temp Pulse Resp BP Pulse Ox O2 Del Method 97.1 F 80 16 165/112 H 97 Room Air 06/09/24 12:00 06/09/24 12:00 06/09/24 12:00 06/09/24 12:00 06/09/24 12:00 06/09/24 12:00 Narrative Exam General: Awake. HEENT: Normocephalic, atraumatic, mucous membranes moist. Heart: Regular rate and rhythm, no murmurs. Lungs: Clear to auscultation with no wheezing or crackles. Abdomen: Soft, nondistended, nontender, positive bowel sounds. ?No guarding or rebound tenderness. Neurologic: Alert and oriented x3, no gross neurological deficit, and patient able to move all 4 extremities. Noted mild swaying to the left on closure of his eyes Extremities: No edema. Skin: No rash or ecchymoses. Objective Labs 06/09/24 05:15 06/09/24 05:15 Labs: Laboratory Results - last 24 hr 06/08/24 06/09/24 17:00 05:15 WBC 7.8 RBC 5.17 Hgb 15.2 Hct 45.0 MCV 87 MCH 29.4 MCHC 33.8 RDW Std Deviation 41.6 Plt Count 276 Neut % (Auto) 62 Lymph % (Auto) 26 [place] % (Auto) 10 Eos % (Auto) 2 Baso % (Auto) 1 Neut # (Auto) 4.8 Lymph # (Auto) 2.0 [place] # (Auto) 0.8 Eos # (Auto) 0.1 Baso # (Auto) 0.0 Immature Gran # (Auto) 0.01 H Absolute Nucleated RBC 0.00 Immature Gran % 0 Nucleated RBC % 0 Sodium 139 Potassium 3.6 D Chloride 108 H Carbon Dioxide 23.8 Anion Gap 7 BUN 11 Creatinine 1.0 Estim Creat Clear Calc 126.4 eGFR > 60 BUN/Creatinine Ratio 11 L Glucose [address] Glu mg/dL 114 Hemoglobin A1c 5.6 Calculated Osmolality 277 Calcium 9.3 Triglycerides 123 Cholesterol 203 H LDL Cholesterol, Calc 134 H HDL Cholesterol 44 Cholesterol/HDL Ratio 4.6 Vitamin B12 348 TSH 1.18 Ur Collection Type Clean Catch Urine Color Lt-Yellow Urine Clarity Clear Urine pH 6.5 Ur Specific [place] 1.016 Urine Protein Negative Urine Glucose (UA) Negative Urine Ketones Trace Urine Blood Negative Urine Nitrite Negative Urine Bilirubin Negative Urine Urobilinogen (Auto) Negative Ur Leukocyte Esterase Negative Urine RBC 5 H Urine WBC 2 Ur Squamous Epith Cells 0 Urine Bacteria None Quality Measures Quality Measures none Assessment & Plan Assessment Current Active Medications: Generic Name Dose Route Start Last Admin Trade Name Freq PRN Reason Stop Dose Admin Acetaminophen 650 mg 06/08/24 16:16 06/09/24 14:59 Acetaminophen 325 Mg Tablet PO 07/08/24 16:15 650 mg Q6H PRN Administration Fever >101.5 Aspirin 81 mg 06/09/24 09:00 06/09/24 08:21 Aspirin Ec 81 Mg Tabec PO 07/09/24 08:59 81 mg QDAY CARRILLO Administration Atorvastatin Calcium 40 mg 06/08/24 21:00 06/08/24 20:05 Atorvastatin Calcium 20 Mg Tablet PO 07/08/24 20:59 40 mg HS CARRILLO Administration Clopidogrel Bisulfate 75 mg 06/09/24 14:15 06/09/24 14:52 Clopidogrel Bisulfate 75 Mg Tablet PO 07/09/24 14:14 Not Given QDAY CARRILLO Docusate Sodium 100 mg 06/08/24 16:16 Docusate Sod 100 Mg Capsule PO 07/08/24 16:15 QDAY PRN CONSTIPATION Protocol Labetalol HCl 10 mg 06/08/24 16:23 Labetalol Inj 5 Mg/Ml Vial 20 Ml IVP 07/08/24 16:22 X1 PRN sbp>220 Ondansetron HCl 4 mg 06/08/24 16:16 Ondansetron Inj 2 Mg/Ml Inj 2 Ml IV 07/08/24 16:15 Q6H PRN NAUSEA OR VOMITING Protocol Plan 59-year-old male with significant past medical history of hypertension, BPH presented to the hospital with chief complaints of dizziness since 2 days and slurring of speech since 1 day admitted for stroke rule out # Vertigo, resolved # Acute CVA - Presented to the hospital with complaints of 1 episode of vertigo 2 before the day of admission - Patient noted to have slurred speech by his niece on the day of admission - Vitals at the admission are stable except for elevated blood pressure 187/121 mmHg - Labs are significant for hemoglobin 16.2 - Head CT is negative for acute infarct/hemorrhage. Noted mild opacification in the posterior sagittal sinus - Received 325 mg aspirin in the ED - MR brain is ordered -acute infarct of 16 mm in the right thalamus - HbA1c, lipid profile, TSH, B12 ordered -almost within normal limits Plan - Started on aspirin and clopidogrel - Started on atorvastatin 80 Mg p.o. at bedtime - Echo ordered, pending - Dr Mcclain is consulted, will appreciate her recommendations - Physical therapy referral done # History of hypertension - Patient is using lisinopril 20 Mg p.o. daily at home - Allowed permissive hypertension for 48 hours - Restarted on lisinopril 20 mg p.o. qday - Labetalol as needed if blood pressure greater than 220/120 mmHg # History of BPH - Patient is using tamsulosin 0.4 Mg p.o. daily at home - Medication reconciliation is ordered - Will start tamsulosin once med rec is done Hospital Maintenance: Dispo: Telemetry DVT ppx: SCD GI ppx: Not needed Diet: Low-sodium IV lines: Peripheral Code status: Full code Patient plan of care was discussed with the attending physician, Dr. Mimi Stein, PGY1 Attending Provider Attestation/Addendum I attest that I was physically present for the evaluation, physical examination, lab and imaging review of the patient with the residents. I discussed the case with the residents and agree with the findings and plans of care as documented above. At bedside today, patient is alert and awake, able to answer questions and follow commands appropriately.? Continues to have mild facial asymmetry.? No limb weakness or decreased sensation.? Continues to be on aspirin and statin as recommended by neurology.? MRI shows acute infarct of 16 mm in the right thalamus. Awaiting echocardiography and physical therapy. Shameka Le MD
[2024-06-09] MEDS: Lisinopril 20 MG TABLET PO (16:01)
[2024-06-09] MEDS: ATORVASTATIN CALCIUM 20 MG TABLET 80 MG PO (20:05)
[2024-06-10] VITALS (8 sets, daily range): BP systolic 128–159; BP diastolic 89–111; PULSE 82–101; RESP 15–21; TEMP 35.9–36.7; O2SAT 95–99; BMI 39.7; BMI 39.5
--- NOTE | 2024-06-10 | XR_ITS ---
Examination: MRI cervical spine, without intravenous contrast. MRI cervical spine , with intravenous contrast. Exam date and time: June 10, 2024 1643 hours INDICATIONS: Left-sided body weakness slurred speech neck pain beginning 2 days ago, clinical diagnosis demyelinating disease Technique: Multiple axial, sagittal and coronal images of the cervical spine have been obtained with the Siemens high-resolution 1.5 [employer] MRI scanner. Images obtained included T2 weighted fat suppressed sagittal sections, TR 3500, TE 46, T2 weighted coronal fat suppressed images, TR 3050, TE 84, T2-weighted transverse fat suppressed images, TR 30-60, TE 63, proton density transverse images, TR 4720, TE 46, and T1 weighted coronal images, TR 560, TE 13. Axial, sagittal and coronal images are obtained post intravenous injection 20 cc gadolinium. Findings: Contrast images do not demonstrate focal areas increased signal in the cervical cord Diffuse cervical disc desiccation Mild disc disease C5-C6 Moderate cervical spondylosis No cervical fracture C2-C3 no disc protrusion C3-C4 advanced right neural foraminal stenosis C4-C5 4 mm central disc bulge C5-C6 3 mm central subarticular osteophyte disc complex, facet arthropathy, advanced bilateral neural foraminal stenosis C6-C7 advanced bilateral neural foraminal stenosis C7-T1 no disc protrusion Postcontrast images do not demonstrate abnormal cervical cord osseous or epidural enhancement Impression: No MR findings diagnostic for demyelinating disease Acquired spinal stenosis as above
[2024-06-10] MEDS: ACETAMINOPHEN 325 MG TABLET 650 MG PO ×2 (02:41→23:45)
[2024-06-10 05:56] LABS: Basophils # (Auto) 0.1 Thou/mm3 (0.0-0.2); Basophils % (Auto) 1 % (0-2.5); Eosinophils # (Auto) 0.3 Thou/mm3 (0.0-0.5); Eosinophils % (Auto) 4 % (0-10); Hematocrit 45.3 % (41.0-53.0); Hemoglobin 15.1 g/dL (13.5-16.0); Immature Granulocytes % (Auto) 0 % (0-0); Immature Granulocytes Auto 0.01 Thou/mm3 (0.00-0.00); Lymphocytes # (Auto) 1.8 Thou/mm3 (1.0-4.8); Lymphocytes % (Auto) 27 % (10-50); Mean Corpuscular HGB Conc 33.3 g/dl (31.0-37.0); Mean Corpuscular Hemoglobin 29.3 pg (25.0-35.0); Mean Corpuscular Volume 88 fL (80-100); Monocytes # (Auto) 0.7 Thou/mm3 (0.0-0.8); Monocytes % (Auto) 10 % (0-12); Neutrophils # (Auto) 3.8 Thou/mm3 (1.8-7.7); Neutrophils % (Auto) 58 % (37-80); Nucleated Red Blood Cell % 0 /100 WBC (0); Platelet Count 278 Thou/mm3 (140-440); RDW Standard Deviation 42.9 fL (35.1-43.9); Red Blood Count 5.16 Miln/mm3 (4.50-5.90); White Blood Count 6.6 Thou/mm3 (3.8-10.6)
[2024-06-10 06:39] LABS: Anion Gap 11 (7-16); BUN/Creatinine Ratio 11 Ratio (12-20); Blood Urea Nitrogen 12 mg/dL (9-23); Calcium 9.3 mg/dL (8.3-10.6); Carbon Dioxide 23.9 mMol/L (20.0-31.0); Chloride 105 mMol/L (98-107); Creatinine (Component) 1.1 mg/dL (0.6-1.3); Estimated Creatinine Clearance 113.6 mL/min (>60); Glucose 105 mg/dL (74-106); Osmolality,Calculated 279 (275-295); Potassium 3.3 mMol/L (3.4-5.1); Sodium 140 mMol/L (136-145); eGFR > 60 See Note
--- NOTE | 2024-06-10 07:21 | XR_ITS ---
Examination: Carotid arterial duplex scan, ultrasound. Date and time of exam: June 10, 2024 1247 hours INDICATIONS: Stroke symptoms, focal neurologic deficits beginning June 06, slurred speech weakness on the left side facial droop Technique: Multiple sonographic images have been obtained of the carotid arteries and vertebral arteries, B-mode/grayscale imaging and Doppler spectral analysis and color flow Peak systolic and diastolic velocities have been recorded. Systolic diastolic ratios have been calculated. Findings: Right peak systolic velocities: Distal internal carotid artery peak systolic velocity is 0.7 M/sec Proximal internal carotid artery peak systolic velocity is 0.6 M/sec Carotid bifurcation peak systolic velocity is 0.9 M/sec External carotid artery peak systolic velocity is 0.8 M/sec Vertebral artery flow is antegrade. Left peak systolic velocities: Distal internal carotid artery peak systolic velocity is 0.7 M/sec Proximal internal carotid artery peak systolic velocity is 0.9 M/sec Carotid bifurcation peak systolic velocity is 0.9 M/sec External carotid artery peak systolic velocity is 0.9 M/sec Vertebral artery flow is antegrade Doppler waveform analysis demonstrates no spectral broadening Impression: Right internal carotid artery demonstrates 0-10% stenosis. Left internal carotid artery demonstrates 0-10% stenosis.
--- NOTE | 2024-06-10 08:11 | ECHO_ITS ---
Transthoracic Echo Report Ht (in): 75 Wt (lb): 318 Exam Location: Portable Status: Inpatient Retail Sales Associate: Sunita Kelly Indications: Procedure Performed: BP: / HR: MEASUREMENTS (Male / Female) Normal Values 2D ECHO LV Diastolic Diameter PLAX 4.6 cm 4.2 - 5.9 / 3.9 - 5.3 cm LV Systolic Diameter PLAX 3.0 cm IVS Diastolic Thickness 1.2 cm 0.6 - 1.0 / 0.6 - 0.9 cm LVPW Diastolic Thickness 1.0 cm 0.6 - 1.0 / 0.6 - 0.9 cm LV Relative Wall Thickness 0.5 LVOT Diameter 2.1 cm Aortic Root Diameter 4.4 cm LA Systolic Diameter LX 3.0 cm 3.0 - 4.0 / 2.7 - 3.8 cm LV Ejection Fraction MOD 4C 70.3 % LV Ejection Fraction 4C AL 70.4 % LA Volume Index 14.0 cm?/m? 16 - 28 cm?/m? DOPPLER AV Peak Velocity 135.0 cm/s AV Peak Gradient 7.3 mmHg AV Mean Gradient 5.0 mmHg AV Velocity Time Integral 30.0 cm AI Peak Velocity 164.0 cm/s AI Peak Gradient 10.8 mmHg AI Pressure Half Time 368.0 ms LVOT Peak Velocity 87.9 cm/s LVOT Peak Gradient 3.1 mmHg LVOT Velocity Time Integral 23.4 cm AV Area Cont Eq vti 2.7 cm? AV Area Cont Eq pk 2.3 cm? MV Area PHT 4.9 cm? Mitral E Point Velocity 64.9 cm/s Mitral A Point Velocity 101.0 cm/s Mitral E to A Ratio 0.6 LV E' Lateral Velocity 9.8 cm/s Mitral E to LV E' Lateral Ratio 6.7 LV E' Septal Velocity 7.0 cm/s Mitral E to LV E' Septal Ratio 9.2 TR Peak Velocity 208.5 cm/s TR Peak Gradient 17.4 mmHg PV Peak Velocity 90.4 cm/s PV Peak Gradient 3.3 mmHg RVOT Peak Velocity 46.6 cm/s FINDINGS Left Ventricle Normal left ventricular size, wall thickness, systolic function with no obvious regional wall motion abnormalities. There is grade II diastolic dysfunction of the left ventricle (pseudonormal filling pattern). The left ventricular ejection fraction is normal, estimated at 60-65%. Right Ventricle The right ventricle is normal in size and systolic function. The estimated right ventricular systolic pressure, 20 mmHg. Left Atrium The left atrium is normal by two-dimensional, color flow and Doppler imaging with no structural abnormalities, no thrombus formation present. Right Atrium The right atrium is normal by two-dimensional imaging, color flow and Doppler imaging with no structural abnormalities, no thrombus formation present. Atrial Septum The interatrial septum appears normal with no evidence of a shunt. Aorta The aorta is normal by two-dimensional, color flow and Doppler interrogation. Mitral Valve Mild mitral regurgitation. Mild mitral annular calcification. . Aortic Valve Aortic valve sclerosis. Trace to mild aortic valve regurgitation. Tricuspid Valve There is mild tricuspid valve regurgitation. Pulmonic Valve Trivial pulmonic valve regurgitation. Vessels The pulmonary artery appears normal. The inferior vena cava pulmonary and hepatic veins appear normal. Pericardium The pericardium is normal by two-dimensional imaging. There is no significant pericardial effusion. CONCLUSIONS Indication: Stroke Normal LV size and function with estimated LVEF of 60 to 65%. Stage I diastolic dysfunction. Normal RV size and function. Normal RVSP. No bubble study was performed. Mild TR and trace MR. Leroy Garces (Electronically Signed) Final Date: 10 June 2024 19:57
--- NOTE | 2024-06-10 09:10 | ESPR_ITS ---
Documentation for date of: 06/10/24 Subjective Subjective Interval history: No overnight acute events This morning patient stated that he feels better compared to admission otherwise continue to endorse left hemiparesis. Lumbar puncture procedure was attempted and was unsuccessful for which we will order IR fluoroscopic LP to rule out possible demyelinating disease. Exam Vital Signs Temp Pulse Resp BP Pulse Ox O2 Del Method 96.7 F L 85 20 142/104 H 96 Room Air 06/10/24 08:00 06/10/24 08:00 06/10/24 08:00 06/10/24 08:00 06/10/24 08:00 06/10/24 08:00 Narrative Exam General: No acute distress, well nourished, obese, AO x 4 alert, interactive. HEENT: NC/AT, PERRL, EOMI, Good conjugate gaze, moist mucous membranes, mild left facial drooping Neck: Supple, No masses, No adenopathy, carotid pulse 2+ bilaterally without bruits, No JVD, normal range of motion. Chest: Symmetrical, atraumatic, and with equal expansion , Nontender on palpation no deformity and no crepitus. CVS: S1 and S2 present, Regular rate and rhythm, No murmurs, rubs or gallops perceived during auscultation. Lungs: Normal respiratory effort, CTAB, no wheezing, rhonchi or rales perceived during auscultation, No intercostal or subcostal retraction. Abdomen : Soft, increased abdominal girth, no tenderness to palpation, no guarding ,no rebound, +BS. Extremities: No edema, warm well perfused, normal tone and ROM, sensation intact, cap refill less than 2, +2 dp equal bilaterally, able to move all 4 extremities spontaneously. Skin: Intact, no rashes, no lesions, no erythema or jaundice noted Neuro: AOx4, cranial nerves II through XII intact, reflex symmetric and sensation normal, mild left facial drooping, strength 4/5 on upper and lower left extremities, left [id number] test dysmetria, ambulation: Not tested, GCS 15 Psych: Good mood and affect Objective Labs 06/10/24 04:20 06/10/24 04:20 Labs: Laboratory Results - last 24 hr 06/10/24 04:20 WBC 6.6 RBC 5.16 Hgb 15.1 Hct 45.3 MCV 88 MCH 29.3 MCHC 33.3 RDW Std Deviation 42.9 Plt Count 278 Neut % (Auto) 58 Lymph % (Auto) 27 [place] % (Auto) 10 Eos % (Auto) 4 Baso % (Auto) 1 Neut # (Auto) 3.8 Lymph # (Auto) 1.8 [place] # (Auto) 0.7 Eos # (Auto) 0.3 Baso # (Auto) 0.1 Immature Gran # (Auto) 0.01 H Absolute Nucleated RBC 0.00 Immature Gran % 0 Nucleated RBC % 0 Sodium 140 Potassium 3.3 L Chloride 105 Carbon Dioxide 23.9 Anion Gap 11 BUN 12 Creatinine 1.1 Estim Creat Clear Calc 113.6 eGFR > 60 BUN/Creatinine Ratio 11 L Glucose 105 Calculated Osmolality 279 Calcium 9.3 Quality Measures Quality Measures none Assessment & Plan Assessment Current Active Medications: Generic Name Dose Route Start Last Admin Trade Name Freq PRN Reason Stop Dose Admin Acetaminophen 650 mg 06/08/24 16:16 06/10/24 02:41 Acetaminophen 325 Mg Tablet PO 07/08/24 16:15 650 mg Q6H PRN Administration Fever >101.5 Aspirin 81 mg 06/09/24 09:00 06/09/24 08:21 Aspirin Ec 81 Mg Tabec PO 07/09/24 08:59 81 mg QDAY CARRILLO Administration Atorvastatin Calcium 80 mg 06/09/24 21:00 06/09/24 20:05 Atorvastatin Calcium 20 Mg Tablet PO 07/09/24 20:59 80 mg HS CARRILLO Administration Clopidogrel Bisulfate 75 mg 06/09/24 14:15 06/09/24 14:52 Clopidogrel Bisulfate 75 Mg Tablet PO 07/09/24 14:14 Not Given QDAY CARRILLO Docusate Sodium 100 mg 06/08/24 16:16 Docusate Sod 100 Mg Capsule PO 07/08/24 16:15 QDAY PRN CONSTIPATION Protocol Labetalol HCl 10 mg 06/08/24 16:23 Labetalol Inj 5 Mg/Ml Vial 20 Ml IVP 07/08/24 16:22 X1 PRN sbp>220 Lisinopril 20 mg 06/09/24 15:30 06/09/24 16:01 Lisinopril 20 Mg Tablet PO 07/09/24 15:29 20 mg QDAY CARRILLO Administration Ondansetron HCl 4 mg 06/08/24 16:16 Ondansetron Inj 2 Mg/Ml Inj 2 Ml IV 07/08/24 16:15 Q6H PRN NAUSEA OR VOMITING Protocol Plan #Acute right thalamic infarct CT head showed mildly prominent posterior opacified sagittal sinus, negative for acute hemorrhage, mass effect or midline shift brain MRI showed 16mm acute right thalamic infarct, prominent increased white matter signal. Carotid Doppler ultrasound showed right and left carotids with 0-10% stenosis Plan: ? Continue atorvastatin 80 mg daily ? Continue Plavix 75 mg p.o. daily ? Continue aspirin 81 mg p.o. daily ? Pending echocardiogram bubble study ? Continue physical #Rule out acute demyelinating disease Brain MRI showed 16 mm acute right thalamic infarct and prominent white matter signal Plan: ? IR fluoroscopy LP ordered ? MRI cervical with and without contrast ? CSF studies ordered Patient discussed with my attending Dr Sarahi Fulton MD PGY-3 Disclaimer: Despite multiple revisions, due to the dictation software being used, the document bellow may not be free of grammatical errors including phonetic/typographic errors. However, this does not deter from our commitment to providing health care in the patient's best interest in mind. Attending Provider Attestation/Addendum I personally have seen and examined the patient at the bedside and agree with the resident's findings, assessment and plan of care. Patient's lack of coordination involving the left upper extremity should improve with the time, secondary to the acute stroke in the right thalamus. Attempted to do lumbar puncture, but failed. Follow-up with interventional radiology for LP under fluoroscopy as we suspected PRICING CLERK demyelinating disease. MRI of the cervical spine resulted negative. Continue with aspirin, Plavix and statin.
[2024-06-10] MEDS: Lisinopril 20 MG TABLET PO (09:25)
[2024-06-10] MEDS: ASPIRIN EC 81 MG TABEC PO (09:25)
[2024-06-10] MEDS: POTASSIUM CHLORIDE 20 mEq TABCR 40 MEQ PO (09:26)
[2024-06-10] MEDS: CLOPIDOGREL BISULFATE 75 MG TABLET PO (09:26)
--- NOTE | 2024-06-10 09:56 | PC.SS ---
SS follow up note Pending Dr. Mcclain's further recommendations and Echo study. Patient is pending authorization to [facility].
[2024-06-10 11:52] LABS: INR 1.1 (0.9-1.3); Partial Thromboplastin Time 29.3 Seconds (22.0-36.0); Prothrombin Time 11.7 Seconds (9.0-12.2)
--- NOTE | 2024-06-10 16:03 | ESPR_ITS ---
<Statement entered by Crow Everett MD - 06/11/24 07:48> Senior Resident Attestation: I supervised/discussed management plan with global marketing intern physician Dr. Stein, and was involved in the care of this patient. I personally saw and examined the patient and discussed the assessment and plan with the entire medicine team, including my attending. I agree with the assessment and plan as documented. Patient had unsuccessful lumbar puncture yesterday and was scheduled for IR guided lumbar puncture. Neck MRI was ordered by neurology. Patient's care was discussed with attending physician, Dr. Oliver. Crow Everett MD PGY-2. Documentation for date of: 06/10/24 Subjective Subjective Interval history: Patient is seen and examined at bedside No acute overnight events. Reported that he is doing well and no further complaints Dr. Mcclain saw the patient, tried to do lumbar puncture but unsuccessful. IR guided lumbar puncture was placed MRI neck with and without contrast is ordered by Dr. Mcclain in view of suspicion of demyelinating disease Doppler of neck results is ordered as a part of stroke workup Exam Vital Signs Temp Pulse Resp BP Pulse Ox O2 Del Method 97.7 F 98 21 H 139/100 H 95 Room Air 06/10/24 12:00 06/10/24 12:00 06/10/24 12:00 06/10/24 12:00 06/10/24 12:00 06/10/24 12:00 Narrative Exam General: Awake. HEENT: Normocephalic, atraumatic, mucous membranes moist. Heart: Regular rate and rhythm, no murmurs. Lungs: Clear to auscultation with no wheezing or crackles. Abdomen: Soft, nondistended, nontender, positive bowel sounds. ?No guarding or rebound tenderness. Neurologic: Alert and oriented x3, no gross neurological deficit, and patient able to move all 4 extremities. Noted mild swaying to the left on closure of his eyes he. Finger-nose test is abnormal on left side Extremities: No edema. Skin: No rash or ecchymoses. Objective Labs 06/11/24 05:18 06/11/24 05:18 Labs: Laboratory Results - last 24 hr 06/10/24 04:20 WBC 6.6 RBC 5.16 Hgb 15.1 Hct 45.3 MCV 88 MCH 29.3 MCHC 33.3 RDW Std Deviation 42.9 Plt Count 278 Neut % (Auto) 58 Lymph % (Auto) 27 [place] % (Auto) 10 Eos % (Auto) 4 Baso % (Auto) 1 Neut # (Auto) 3.8 Lymph # (Auto) 1.8 [place] # (Auto) 0.7 Eos # (Auto) 0.3 Baso # (Auto) 0.1 Immature Gran # (Auto) 0.01 H Absolute Nucleated RBC 0.00 Immature Gran % 0 Nucleated RBC % 0 PT 11.7 INR 1.1 APTT 29.3 Sodium 140 Potassium 3.3 L Chloride 105 Carbon Dioxide 23.9 Anion Gap 11 BUN 12 Creatinine 1.1 Estim Creat Clear Calc 113.6 eGFR > 60 BUN/Creatinine Ratio 11 L Glucose 105 Calculated Osmolality 279 Calcium 9.3 Quality Measures Quality Measures none Assessment & Plan Assessment Current Active Medications: Generic Name Dose Route Start Last Admin Trade Name Freq PRN Reason Stop Dose Admin Acetaminophen 650 mg 06/10/24 16:19 Acetaminophen 325 Mg Tablet PO 07/08/24 16:15 Q6H PRN Fever >100.3 Aspirin 81 mg 06/09/24 09:00 06/10/24 09:25 Aspirin Ec 81 Mg Tabec PO 07/09/24 08:59 81 mg QDAY CARRILLO Administration Atorvastatin Calcium 80 mg 06/09/24 21:00 06/09/24 20:05 Atorvastatin Calcium 20 Mg Tablet PO 07/09/24 20:59 80 mg HS CARRILLO Administration Clopidogrel Bisulfate 75 mg 06/09/24 14:15 06/10/24 09:26 Clopidogrel Bisulfate 75 Mg Tablet PO 07/09/24 14:14 75 mg QDAY CARRILLO Administration Docusate Sodium 100 mg 06/08/24 16:16 Docusate Sod 100 Mg Capsule PO 07/08/24 16:15 QDAY PRN CONSTIPATION Protocol Labetalol HCl 10 mg 06/08/24 16:23 Labetalol Inj 5 Mg/Ml Vial 20 Ml IVP 07/08/24 16:22 X1 PRN sbp>220 Lisinopril 20 mg 06/09/24 15:30 06/10/24 09:25 Lisinopril 20 Mg Tablet PO 07/09/24 15:29 20 mg QDAY CARRILLO Administration Ondansetron HCl 4 mg 06/08/24 16:16 Ondansetron Inj 2 Mg/Ml Inj 2 Ml IV 07/08/24 16:15 Q6H PRN NAUSEA OR VOMITING Protocol Plan 59-year-old male with significant past medical history of hypertension, BPH presented to the hospital with chief complaints of dizziness since 2 days and slurring of speech since 1 day admitted for stroke rule out # Vertigo, resolved # Acute CVA - Presented to the hospital with complaints of 1 episode of vertigo 2 before the day of admission - Patient noted to have slurred speech by his niece on the day of admission - Vitals at the admission are stable except for elevated blood pressure 187/121 mmHg - Labs are significant for hemoglobin 16.2 - Head CT is negative for acute infarct/hemorrhage. Noted mild opacification in the posterior sagittal sinus - Received 325 mg aspirin in the ED - MR brain is ordered -acute infarct of 16 mm in the right thalamus - HbA1c, lipid profile, TSH, B12 ordered -almost within normal limits Plan - Started on aspirin and clopidogrel - Started on atorvastatin 80 Mg p.o. at bedtime - Echo ordered, pending - Dr Mcclain is consulted, will appreciate her recommendations-recommended CSF analysis, MRI neck to rule out demyelinating diseases -Doppler of neck results is ordered, pending - Physical therapy referral done # History of hypertension - Patient is using lisinopril 20 Mg p.o. daily at home - Allowed permissive hypertension for 48 hours - Restarted on lisinopril 20 mg p.o. qday - Labetalol as needed if blood pressure greater than 220/120 mmHg # History of BPH - Patient is using tamsulosin 0.4 Mg p.o. daily at home - Medication reconciliation is ordered - Will start tamsulosin once med rec is done Hospital Maintenance: Dispo: Telemetry DVT ppx: SCD GI ppx: Not needed Diet: Low-sodium IV lines: Peripheral Code status: Full code Patient plan of care was discussed with the attending physician, Dr. Oliver and senior resident Dr. Marguerite Stein, PGY1 Attending Provider Attestation/Addendum Luis, Phyllis Oliver, DO, attest that I was physically present for the bae portions of the service and evaluated the patient with the resident and I reviewed and discussed the case with the resident and agree with the resident's findings and plans of care as documented above Patient seen and evaluated this AM. He states that he is doing well, but has some issues with his coordination of left arm. Skkcyi-zo-[id number] test was performed and noted to be uncoordinated in the LUE. He has a mild facial droop on the left as well. LP was attempted this morning by neurology, but unsuccesful. Will have IR attempt LP. He is also pending MRI of C-spine to rule out any evidence of MS.
[2024-06-10] MEDS: ATORVASTATIN CALCIUM 20 MG TABLET 80 MG PO (20:07)
[2024-06-11] VITALS (10 sets, daily range): BP systolic 110–133; BP diastolic 76–92; PULSE 83–106; RESP 13–20; TEMP 35.9–36.6; O2SAT 95–98; BMI 39.6; BMI 11.0
[2024-06-11 06:13] LABS: Basophils # (Auto) 0.1 Thou/mm3 (0.0-0.2); Basophils % (Auto) 1 % (0-2.5); Eosinophils # (Auto) 0.2 Thou/mm3 (0.0-0.5); Eosinophils % (Auto) 3 % (0-10); Hematocrit 46.6 % (41.0-53.0); Hemoglobin 15.4 g/dL (13.5-16.0); Immature Granulocytes % (Auto) 0 % (0-0); Immature Granulocytes Auto 0.02 Thou/mm3 (0.00-0.00); Lymphocytes # (Auto) 1.9 Thou/mm3 (1.0-4.8); Lymphocytes % (Auto) 26 % (10-50); Mean Corpuscular Hemoglobin 29.5 pg (25.0-35.0); Mean Corpuscular Volume 89 fL (80-100); Monocytes # (Auto) 0.8 Thou/mm3 (0.0-0.8); Monocytes % (Auto) 11 % (0-12); Neutrophils # (Auto) 4.5 Thou/mm3 (1.8-7.7); Neutrophils % (Auto) 59 % (37-80); Nucleated Red Blood Cell % 0 /100 WBC (0); Platelet Count 296 Thou/mm3 (140-440); Red Blood Count 5.22 Miln/mm3 (4.50-5.90); White Blood Count 7.6 Thou/mm3 (3.8-10.6)
--- NOTE | 2024-06-11 06:25 | PD.EVENT ---
Documentation for date of: 06/10/24 Date of procedure: 06/10/24 Pre-op diagnosis: CIGAR BRANDER demyelinating disease Post-op diagnosis: Same Consent signed by: Patient Position: lateral decubitus and sitting Prep: betadine Anesthesia: 1 % Lidocaine Sedation: none Needle size: 22ga Needle length: other (5) Interspace: L3-4 Number of attempts: 5 Patient tolerance: Patient tolerated the procedure well without any complications Comments: The procedure was terminated as it was unsuccessful after several attempts Attending note: Patient will undergo lumbar puncture by interventional radiology. Disposition: floor
[2024-06-11 06:37] LABS: Anion Gap 7 (7-16); BUN/Creatinine Ratio 13 Ratio (12-20); Blood Urea Nitrogen 15 mg/dL (9-23); Calcium 9.3 mg/dL (8.3-10.6); Carbon Dioxide 25.7 mMol/L (20.0-31.0); Chloride 107 mMol/L (98-107); Creatinine (Component) 1.2 mg/dL (0.6-1.3); Estimated Creatinine Clearance 104.1 mL/min (>60); Glucose 108 mg/dL (74-106); Osmolality,Calculated 281 (275-295); Potassium 3.6 mMol/L (3.4-5.1); Sodium 140 mMol/L (136-145); eGFR > 60 See Note
[2024-06-11] MEDS: DOCUSATE SOD 100 MG CAPSULE PO (08:13)
[2024-06-11] MEDS: ASPIRIN EC 81 MG TABEC PO (08:13)
[2024-06-11] MEDS: CLOPIDOGREL BISULFATE 75 MG TABLET PO (08:13)
[2024-06-11] MEDS: Lisinopril 20 MG TABLET PO (08:13)
--- NOTE | 2024-06-11 08:37 | PC.SS ---
SS update: Received call from [facility] in [place] informing they obtained insurance authorization for the patient, updated assigned d/c material planner.
--- NOTE | 2024-06-11 09:20 | XR_ITS ---
Examination: Fluoroscopy AP lumbar spine single view Exam date and time: June 11, 2024 at 11:50 AM INDICATIONS: Altered mental status, clinical diagnosis demyelinating disease TECHNIQUE AND FINDINGS: Informed consent provided. Timeout performed. Skin prepped over the lower back and sterile drape applied Lumbar puncture attempted however the needle is not long enough to enter the spinal canal IMPRESSION: The patient's size precludes successful lumbar puncture Fluoroscopy 1.1 minute 2 spot fluoroscopic films
--- NOTE | 2024-06-11 09:25 | PC.SS ---
SS follow up note; SS was informed that Authorization was obtained, SHO contacted Brenda from [facility] in informed her that patient will be getting a Lumbar Puncture to R/O Multiple Sclerosis, however SHO informed her patient could discharge later this afternoon, Brenda informed SS she rather have patient discharge tomorrow morning. Transportation will be set up for tomorrow morning.
--- NOTE | 2024-06-11 12:47 | PC.NURSE ---
Dr. Rusty rolon pt. returned from IR from LP and per Hugo in Xray LP was unsuccessful. Dr. rolon. Dr. cecille rolon pt. has not had BM since 06/07 and was given PRN Joshua this AM and no BM so far. Dr. Ojeda states I will order something. However, Dr. rolon pt. must lay flat until 1530 due to LP
[2024-06-11] MEDS: ACETAMINOPHEN 325 MG TABLET 650 MG PO ×2 (13:39→22:43)
--- NOTE | 2024-06-11 14:07 | ESPR_ITS ---
Documentation for date of: 06/11/24 Subjective Subjective Interval history: No overnight acute events Patient is AO x 4, respond to questions properly in good spirits, denied any acute complaints like headache, nausea vomiting or dizziness continued complaints of mild left hemiparesis. MRI cervical spine showed acquired spinal and was negative for demyelinating disease. IR guided lumbar puncture was unsuccessful for which can be done as an outpatient with neurology. Exam Vital Signs Temp Pulse Resp BP Pulse Ox O2 Del Method 97.1 F 87 18 115/76 95 Room Air 06/11/24 12:00 06/11/24 12:00 06/11/24 12:06/11/24 12:06/11/24 12:06/11/24 12:00 Narrative Exam General: No acute distress, well nourished, obese, AO x 4 alert, interactive. HEENT: NC/AT, PERRL, EOMI, Good conjugate gaze, moist mucous membranes, mild left facial drooping Neck: Supple, No masses, No adenopathy, carotid pulse 2+ bilaterally without bruits, No JVD, normal range of motion. Chest: Symmetrical, atraumatic, and with equal expansion , Nontender on palpation no deformity and no crepitus. CVS: S1 and S2 present, Regular rate and rhythm, No murmurs, rubs or gallops perceived during auscultation. Lungs: Normal respiratory effort, CTAB, no wheezing, rhonchi or rales perceived during auscultation, No intercostal or subcostal retraction. Abdomen : Soft, increased abdominal girth, no tenderness to palpation, no guarding ,no rebound, +BS. Extremities: No edema, warm well perfused, normal tone and ROM, sensation intact, cap refill less than 2, +2 dp equal bilaterally, able to move all 4 extremities spontaneously. Skin: Intact, no rashes, no lesions, no erythema or jaundice noted Neuro: AOx4, cranial nerves II through XII intact, reflex symmetric and sensation normal, mild left facial drooping, strength 4/5 on upper and lower left extremities, left [id number] test dysmetria, ambulation: Not tested, GCS 15 Psych: Appropriate Objective Labs 06/11/24 05:18 06/11/24 05:18 Labs: Laboratory Results - last 24 hr 06/11/24 05:18 WBC 7.6 RBC 5.22 Hgb 15.4 Hct 46.6 MCV 89 MCH 29.5 MCHC 33.0 RDW Std Deviation 43.0 Plt Count 296 Neut % (Auto) 59 Lymph % (Auto) 26 [place] % (Auto) 11 Eos % (Auto) 3 Baso % (Auto) 1 Neut # (Auto) 4.5 Lymph # (Auto) 1.9 [place] # (Auto) 0.8 Eos # (Auto) 0.2 Baso # (Auto) 0.1 Immature Gran # (Auto) 0.02 H Absolute Nucleated RBC 0.00 Immature Gran % 0 Nucleated RBC % 0 Sodium 140 Potassium 3.6 Chloride 107 Carbon Dioxide 25.7 Anion Gap 7 BUN 15 Creatinine 1.2 Estim Creat Clear Calc 104.1 eGFR > 60 BUN/Creatinine Ratio 13 Glucose 108 H Calculated Osmolality 281 Calcium 9.3 Quality Measures Quality Measures none Assessment & Plan Assessment Current Active Medications: Generic Name Dose Route Start Last Admin Trade Name Freq PRN Reason Stop Dose Admin Acetaminophen 650 mg 06/10/24 16:19 06/11/24 13:39 Acetaminophen 325 Mg Tablet PO 07/08/24 16:15 650 mg Q6H PRN Administration Fever >100.3 Hydrocodone Bitart/Acetaminophen 1 tab 06/11/24 13:27 Hydrocodone/Apap 5/325 Tablet PO 06/16/24 13:26 Q6HR PRN Pain 6-10 Aspirin 81 mg 06/09/24 09:00 06/11/24 08:13 Aspirin Ec 81 Mg Tabec PO 07/09/24 08:59 81 mg QDAY CARRILLO Administration Atorvastatin Calcium 80 mg 06/09/24 21:00 06/10/24 20:07 Atorvastatin Calcium 20 Mg Tablet PO 07/09/24 20:59 80 mg HS CARRILLO Administration Clopidogrel Bisulfate 75 mg 06/09/24 14:15 06/11/24 08:13 Clopidogrel Bisulfate 75 Mg Tablet PO 07/09/24 14:14 75 mg QDAY CARRILLO Administration Docusate Sodium 100 mg 06/08/24 16:16 06/11/24 08:13 Docusate Sod 100 Mg Capsule PO 07/08/24 16:15 100 mg QDAY PRN Administration CONSTIPATION Protocol Labetalol HCl 10 mg 06/08/24 16:23 Labetalol Inj 5 Mg/Ml Vial 20 Ml IVP 07/08/24 16:22 X1 PRN sbp>220 Lisinopril 20 mg 06/09/24 15:30 06/11/24 08:13 Lisinopril 20 Mg Tablet PO 07/09/24 15:29 20 mg QDAY CARRILLO Administration Ondansetron HCl 4 mg 06/08/24 16:16 Ondansetron Inj 2 Mg/Ml Inj 2 Ml IV 07/08/24 16:15 Q6H PRN NAUSEA OR VOMITING Protocol Plan #Acute right thalamic infarct CT head showed mildly prominent posterior opacified sagittal sinus, negative for acute hemorrhage, mass effect or midline shift brain MRI showed 16mm acute right thalamic infarct, prominent increased white matter signal. Carotid Doppler ultrasound showed right and left carotids with 0-10% stenosis Plan: Per neurology standpoint patient can be discharged to SNF after echo bubble study ? Continue atorvastatin 80 mg daily ? Continue Plavix 75 mg p.o. daily ? Continue aspirin 81 mg p.o. daily ? Pending echocardiogram bubble study ? Continue physical #Rule out acute demyelinating disease Brain MRI showed 16 mm acute right thalamic infarct and prominent white matter signal MRI cervical spine spine showed acquired spinal stenosis and was negative for demyelinating disease IR lumbar puncture was unsuccessful for which LP can be done as an outpatient Plan: ? Outpatient LP Patient discussed with my attending Dr Sarahi Fulton MD PGY-3 Disclaimer: Despite multiple revisions, due to the dictation software being used, the document bellow may not be free of grammatical errors including phonetic/typographic errors. However, this does not deter from our commitment to providing health care in the patient's best interest in mind. Attending Provider Attestation/Addendum I personally have seen and examined the patient at the bedside and agree with resident's findings, assessment and plan of care. Patient continued to have weakness and lack of fine motor function involving the left upper extremity. He does have good strength. IR could not get the lumbar puncture done. Will schedule it as an outpatient in my office. Patient is stable for discharge to rehab tomorrow.
--- NOTE | 2024-06-11 14:28 | ESPR_ITS ---
<Statement entered by Crow Everett MD - 06/12/24 07:47> Senior Resident Attestation: I supervised/discussed management plan with sports management internship physician Dr. Stein, and was involved in the care of this patient. I personally saw and examined the patient and discussed the assessment and plan with the entire medicine team, including my attending. I agree with the assessment and plan as documented. Patient will undergo lumbar puncture today as a part of neurological evaluation and will be ready for discharge tomorrow morning. Patient's care was discussed with attending physician, Dr. Oliver. Crow Everett MD PGY-2. Documentation for date of: 06/11/24 Subjective Subjective Interval history: Patient is seen and examined at bedside No acute overnight events. Denies any further complaints Patient is scheduled for lumbar puncture by interventional radiologist but it is unsuccessful MRI neck did not show any demyelinating lesions, Dr. Mcclain was consulted and she recommended further follow-up in outpatient basis and no need of further LP as of now Planning to discharge tomorrow to the rehab facility in [place]. Exam Vital Signs Temp Pulse Resp BP Pulse Ox O2 Del Method 97.1 F 87 18 115/76 95 Room Air 06/11/24 12:00 06/11/24 12:00 06/11/24 12:00 06/11/24 12:00 06/11/24 12:00 06/11/24 12:00 Narrative Exam General: Awake. HEENT: Normocephalic, atraumatic, mucous membranes moist. Heart: Regular rate and rhythm, no murmurs. Lungs: Clear to auscultation with no wheezing or crackles. Abdomen: Soft, nondistended, nontender, positive bowel sounds. ?No guarding or rebound tenderness. Neurologic: Alert and oriented x3, no gross neurological deficit, and patient able to move all 4 extremities. Noted mild swaying to the left on closure of his eyes he. Finger-nose test is abnormal on left side Extremities: No edema. Skin: No rash or ecchymoses. Objective Labs 06/12/24 04:40 06/12/24 04:40 Labs: Laboratory Results - last 24 hr 06/11/24 05:18 WBC 7.6 RBC 5.22 Hgb 15.4 Hct 46.6 MCV 89 MCH 29.5 MCHC 33.0 RDW Std Deviation 43.0 Plt Count 296 Neut % (Auto) 59 Lymph % (Auto) 26 [place] % (Auto) 11 Eos % (Auto) 3 Baso % (Auto) 1 Neut # (Auto) 4.5 Lymph # (Auto) 1.9 [place] # (Auto) 0.8 Eos # (Auto) 0.2 Baso # (Auto) 0.1 Immature Gran # (Auto) 0.02 H Absolute Nucleated RBC 0.00 Immature Gran % 0 Nucleated RBC % 0 Sodium 140 Potassium 3.6 Chloride 107 Carbon Dioxide 25.7 Anion Gap 7 BUN 15 Creatinine 1.2 Estim Creat Clear Calc 104.1 eGFR > 60 BUN/Creatinine Ratio 13 Glucose 108 H Calculated Osmolality 281 Calcium 9.3 Quality Measures Quality Measures none Assessment & Plan Assessment Current Active Medications: Generic Name Dose Route Start Last Admin Trade Name Freq PRN Reason Stop Dose Admin Acetaminophen 650 mg 06/10/24 16:19 06/11/24 13:39 Acetaminophen 325 Mg Tablet PO 07/08/24 16:15 650 mg Q6H PRN Administration Fever >100.3 Hydrocodone Bitart/Acetaminophen 1 tab 06/11/24 13:27 Hydrocodone/Apap 5/325 Tablet PO 06/16/24 13:26 Q6HR PRN Pain 6-10 Aspirin 81 mg 06/09/24 09:00 06/11/24 08:13 Aspirin Ec 81 Mg Tabec PO 07/09/24 08:59 81 mg QDAY CARRILLO Administration Atorvastatin Calcium 80 mg 06/09/24 21:00 06/10/24 20:07 Atorvastatin Calcium 20 Mg Tablet PO 07/09/24 20:59 80 mg HS CARRILLO Administration Clopidogrel Bisulfate 75 mg 06/09/24 14:15 06/11/24 08:13 Clopidogrel Bisulfate 75 Mg Tablet PO 07/09/24 14:14 75 mg QDAY CARRILLO Administration Docusate Sodium 100 mg 06/08/24 16:16 06/11/24 08:13 Docusate Sod 100 Mg Capsule PO 07/08/24 16:15 100 mg QDAY PRN Administration CONSTIPATION Protocol Labetalol HCl 10 mg 06/08/24 16:23 Labetalol Inj 5 Mg/Ml Vial 20 Ml IVP 07/08/24 16:22 X1 PRN sbp>220 Lisinopril 20 mg 06/09/24 15:30 06/11/24 08:13 Lisinopril 20 Mg Tablet PO 07/09/24 15:29 20 mg QDAY CARRILLO Administration Ondansetron HCl 4 mg 06/08/24 16:16 Ondansetron Inj 2 Mg/Ml Inj 2 Ml IV 07/08/24 16:15 Q6H PRN NAUSEA OR VOMITING Protocol Plan 59-year-old male with significant past medical history of hypertension, BPH presented to the hospital with chief complaints of dizziness since 2 days and slurring of speech since 1 day admitted for stroke rule out # Vertigo, resolved # Acute CVA - Presented to the hospital with complaints of 1 episode of vertigo 2 before the day of admission - Patient noted to have slurred speech by his niece on the day of admission - Vitals at the admission are stable except for elevated blood pressure 187/121 mmHg - Labs are significant for hemoglobin 16.2 - Head CT is negative for acute infarct/hemorrhage. Noted mild opacification in the posterior sagittal sinus - Received 325 mg aspirin in the ED - MR brain is ordered -acute infarct of 16 mm in the right thalamus - HbA1c, lipid profile, TSH, B12 ordered -almost within normal limits - MRI brain showed 16 mm acute infarct in the right thalamus - MRA neck did not show any significant demyelinating diseases - Echo ordered, EF 55 to 60% Plan - Started on aspirin and clopidogrel, will continue dual antiplatelets for 21 days - Started on atorvastatin 80 Mg p.o. at bedtime - Dr Mcclain is consulted, recommended to on outpatient basis for LP if needed - Doppler of neck did not show any significant stenosis - Physical therapy referral done # History of hypertension - Patient is using lisinopril 20 Mg p.o. daily at home - Allowed permissive hypertension for 48 hours - Restarted on lisinopril 20 mg p.o. qday - Labetalol as needed if blood pressure greater than 220/120 mmHg Hospital Maintenance: Dispo: Telemetry DVT ppx: SCD GI ppx: Not needed Diet: Low-sodium IV lines: Peripheral Code status: Full code Patient plan of care was discussed with the attending physician, Dr. Oliver and senior resident Dr. Marguerite Stein, PGY1 Attending Provider Attestation/Addendum Phyllis Smith, , attest that I was physically present for the bae portions of the service and evaluated the patient with the resident and I reviewed and discussed the case with the resident and agree with the resident's findings and plans of care as documented above LP attempted this morning by IR, but unsuccesful. Patient can otherwise follow up outpt with neurology for further workup of possible MS. MRI of C-spine does not show any signs of demyelinating disease. Patient arranged for dsicharge to acute rehab tomorrow morning. Patient is stable for discharge.
[2024-06-11] MEDS: ATORVASTATIN CALCIUM 20 MG TABLET 80 MG PO (20:21)
[2024-06-12] VITALS: BP 117/72; PULSE 84; PULSE 87; RESP 16; TEMP 36.2; O2SAT 95
[2024-06-12 00:29] VITALS: TEMP 36.3
[2024-06-12 04:00] VITALS: BP 103/64; PULSE 72; PULSE 76; RESP 17; TEMP 35.9; O2SAT 95
[2024-06-12 05:34] LABS: Basophils # (Auto) 0.1 Thou/mm3 (0.0-0.2); Basophils % (Auto) 1 % (0-2.5); Eosinophils # (Auto) 0.3 Thou/mm3 (0.0-0.5); Eosinophils % (Auto) 3 % (0-10); Hematocrit 45.7 % (41.0-53.0); Hemoglobin 15.2 g/dL (13.5-16.0); Immature Granulocytes % (Auto) 0 % (0-0); Immature Granulocytes Auto 0.02 Thou/mm3 (0.00-0.00); Lymphocytes # (Auto) 2.2 Thou/mm3 (1.0-4.8); Lymphocytes % (Auto) 24 % (10-50); Mean Corpuscular HGB Conc 33.3 g/dl (31.0-37.0); Mean Corpuscular Hemoglobin 29.8 pg (25.0-35.0); Mean Corpuscular Volume 90 fL (80-100); Monocytes # (Auto) 1.1 Thou/mm3 (0.0-0.8); Monocytes % (Auto) 12 % (0-12); Neutrophils # (Auto) 5.5 Thou/mm3 (1.8-7.7); Neutrophils % (Auto) 60 % (37-80); Nucleated Red Blood Cell % 0 /100 WBC (0); Platelet Count 305 Thou/mm3 (140-440); RDW Standard Deviation 43.1 fL (35.1-43.9); White Blood Count 9.2 Thou/mm3 (3.8-10.6)
[2024-06-12 06:00] VITALS: BMI 400.5
[2024-06-12 06:06] LABS: Anion Gap 8 (7-16); BUN/Creatinine Ratio 13 Ratio (12-20); Blood Urea Nitrogen 15 mg/dL (9-23); Calcium 9.5 mg/dL (8.3-10.6); Carbon Dioxide 25.6 mMol/L (20.0-31.0); Chloride 106 mMol/L (98-107); Creatinine (Component) 1.2 mg/dL (0.6-1.3); Estimated Creatinine Clearance 104.2 mL/min (>60); Glucose 95 mg/dL (74-106); Osmolality,Calculated 280 (275-295); Potassium 3.8 mMol/L (3.4-5.1); Sodium 140 mMol/L (136-145); eGFR > 60 See Note
[2024-06-12 07:38] VITALS: BP 116/80; PULSE 83; RESP 20; TEMP 36.4; O2SAT 96
--- NOTE | 2024-06-12 08:00 | ESDS_ITS ---
<Statement entered by Phyllis Oliver DO - 06/13/24 08:26> I, Phyllis Oliver DO, attest that I was physically present for the bae portions of the service and evaluated the patient with the resident and I reviewed and discussed the case with the resident and agree with the resident's findings and plans of care as documented above Planned Discharge Date 06/11/24 DS: Providers Provider Date of admission: 06/08/24 16:16 Primary care physician: Warner Abbasi MD Admitting Provider: Shameka Le MD Attending Provider on Admission: Phyllis Oliver DO Consults: 06/08/24 15:01 Consult to Neurology / Tele-Neurology Stat Comment: Consulting Provider: Anam Mcclain 06/08/24 16:24 Referral Physical Therapy Routine Comment: for stroke Physician Instructions: 06/08/24 17:41 Referral Speech Therapy Routine Comment: Attending Provider on DC: Tyrell Stein MD Discharging Provider: Tyrell Stein MD DS: Diagnosis Problem List Completed Was Problem List Reviewed/Reconciled?: Yes Hospital Course Hospital Course Hospital course: A 59-year-old male with significant past medical history of hypertension, BPH presented to the hospital with chief complaints of dizziness since 2 days and slurring of speech since 1 day and admitted for Acute CVA Hospital course: Vitals at the time of admission are blood pressure 187/121 mmHg, pulse rate 98 bpm, respiratory rate 19/min, temperature 98.3 ?F, SpO2 98% with room air. Labs done at the time of admission were significant for Hb 16.2. HbA1c, TSH, B12 and lipid profile are within normal limits. Head CT is negative for acute stroke, hemorrhage and showed mild opacification in the posterior sagittal sinus. MR brain showed acute infarct of 16 mm in the right thalamus. Neurologist Dr. Mcclain was consulted and recommended to continue dual antiplatelets and statin. As patient found to have suspected imaging for demyelinating disease, Dr. Mcclain ordered MRI neck with and without contrast which did not reveal any significant pathology. Tried to do lumbar puncture on bedside which was unsuccessful and even IR guided lumbar puncture is unsuccessful. Recommended to follow-up in outpatient basis with Dr. Mcclain for lumbar puncture to get CSF analysis. Carotid Doppler study showed 0 to 10% stenosis in both right and left internal carotid artery. Echo showed Normal LV size and function with estimated LVEF of 60 to 65%. Stage I diastolic dysfunction. Normal RV size and function. Normal RVSP. Patient is discharged to the rehablitation facility with the following medications and recommendations -Follow-up with PCP within 1 week of discharge. If you do not have appointment, please follow-up with the [facility] with Dr. Stein. Call [phone] to make an appointment. -Follow up with Dr. Mcclain within 1 week of discharge for the otpatient lumbar puncture -Start taking clopidogrel 75mg till 06/29/2024 -Continue Aspirin 81mg daily, atorvastatin 80mg every night -Continue home lisinopril 20mg orally every day in the morning -Return to ED if symptoms persist or return # Vertigo, resolved # Acute CVA # History of hypertension Patient plan of care was discussed with the attending physician, Dr. Oliver and senior resident Dr. Marguerite Stein, PGY1 Time Spent with Patient Time attestation: Total time spent providing and/or coordinating discharge services: Time spent: Greater than 30 minutes Quality: Stroke Pt Provided Written Stroke Discharge Instructions: Yes Exam Vital Signs Temp Pulse Resp BP Pulse Ox O2 Del Method 97.1 F 87 18 115/76 95 Room Air 06/11/24 12:00 06/11/24 12:00 06/11/24 12:00 06/11/24 12:00 06/11/24 12:06/11/24 12:00 Narrative Exam General: Awake. HEENT: Normocephalic, atraumatic, mucous membranes moist. Heart: Regular rate and rhythm, no murmurs. Lungs: Clear to auscultation with no wheezing or crackles. Abdomen: Soft, nondistended, nontender, positive bowel sounds. ?No guarding or rebound tenderness. Neurologic: Alert and oriented x3, and patient able to move all 4 extremities. Extremities: No edema. Skin: No rash or ecchymoses. Discharge Plan Plan Patient Disposition: Xfer Skilled g Fac (SNF) Care Plan Goals: -Follow-up with PCP within 1 week of discharge. If you do not have appointment, please follow-up with the [facility] with Dr. Stein. Call [phone] to make an appointment. -Follow up with Dr. Mcclain within 1 week of discharge for the otpatient lumbar puncture -Start taking clopidogrel 75mg till 06/29/2024 -Continue Aspirin 81mg daily, atorvastatin 80mg every night -Continue home lisinopril 20mg orally every day in the morning -Return to ED if symptoms persist or return Prescriptions/Referrals Prescriptions/Med Rec: New atorvastatin 20 mg Tablet 80 mg PO HS Qty: 30 0RF clopidogrel 75 mg Tablet 75 mg PO QDAY Qty: 30 0RF aspirin [Ecotrin Low Strength] 81 mg Tablet,Delayed Release (Dr/Ec) 81 mg PO QDAY Qty: 30 0RF Continued lisinopril 20 mg tablet 20 mg PO QDAY Referrals: Warner Abbasi MD [Primary Care Provider] - Patient/Caregiver Discharge Instructions Education Materials: Stroke: Self-Care, Discharge Instructions for Stroke, Stroke Self Care After Print Language: Sami Stand Alone Forms: Hannah Award Info., Patient Portal Info Letter Discharge Order Discharge Orders: Discharge (Routine); Ordered 06/12/24 Ordered By: Tyrell Stein Quality Discharge Quality Measures VTE prophylaxis
[2024-06-12 09:26] VITALS: BP 116/80; PULSE 83
[2024-06-12] MEDS: ASPIRIN EC 81 MG TABEC PO (09:26)
[2024-06-12] MEDS: Lisinopril 20 MG TABLET PO (09:26)
[2024-06-12] MEDS: CLOPIDOGREL BISULFATE 75 MG TABLET PO (09:27)
--- NOTE | 2024-06-12 10:33 | PC.SS ---
SS follow up note; SS confirmed with Josseline from [facility] ETA will be for 12-12:30PM. SS notified patient's nurse, Shandra as well as patient and parents.
--- NOTE | 2024-06-12 11:56 | PC.NURSE ---
Called [facility] 3 times no one answers. Will continue to call.
[2024-06-12 12:00] VITALS: BP 127/92; PULSE 92; RESP 18; TEMP 36.1; O2SAT 95
--- NOTE | 2024-06-12 12:16 | PC.NURSE ---
[facility]
--- NOTE | 2024-06-12 13:53 | PD.RESPRO ---
Documentation for date of: 06/12/24 Subjective Subjective Interval history: No overnight acute events Patient is AOx4, respond to questions properly, he is going to be discharged today to SNF in [place], continued complaints of mild left hemiparesis and difficulty with extension of muscles of the left hand. Per neurology standpoint patient can be discharged and continue aspirin Plavix and atorvastatin and can follow-up with neurology 2- 3 weeks after discharge and continue physical therapy. Exam Vital Signs Temp Pulse Resp BP Pulse Ox O2 Del Method 97.0 F 92 18 127/92 H 95 Room Air 06/12/24 12:00 06/12/24 12:00 06/12/24 12:00 06/12/24 12:00 06/12/24 12:00 06/12/24 12:00 Narrative Exam General: No acute distress, well nourished, obese, AO x 4 alert, interactive. HEENT: NC/AT, PERRL, EOMI, Good conjugate gaze, moist mucous membranes, mild left facial drooping Neck: Supple, No masses, No adenopathy, carotid pulse 2+ bilaterally without bruits, No JVD, normal range of motion. Chest: Symmetrical, atraumatic, and with equal expansion , Nontender on palpation no deformity and no crepitus. CVS: S1 and S2 present, Regular rate and rhythm, No murmurs, rubs or gallops perceived during auscultation. Lungs: Normal respiratory effort, CTAB, no wheezing, rhonchi or rales perceived during auscultation, No intercostal or subcostal retraction. Abdomen : Soft, increased abdominal girth, no tenderness to palpation, no guarding ,no rebound, +BS. Extremities: No edema, warm well perfused, normal tone and ROM, sensation intact, cap refill less than 2, +2 dp equal bilaterally, able to move all 4 extremities spontaneously. Skin: Intact, no rashes, no lesions, no erythema or jaundice noted Neuro: AOx4, cranial nerves II through XII intact, reflex symmetric and sensation normal, mild left facial drooping, strength 4/5 on upper and lower left extremities, left [id number] test dysmetria, ambulation: Not tested, GCS 15 Psych: Appropriate Objective Labs 06/12/24 04:40 06/12/24 04:40 Labs: Laboratory Results - last 24 hr 06/12/24 04:40 WBC 9.2 RBC 5.10 Hgb 15.2 Hct 45.7 MCV 90 MCH 29.8 MCHC 33.3 RDW Std Deviation 43.1 Plt Count 305 Neut % (Auto) 60 Lymph % (Auto) 24 [place] % (Auto) 12 Eos % (Auto) 3 Baso % (Auto) 1 Neut # (Auto) 5.5 Lymph # (Auto) 2.2 [place] # (Auto) 1.1 H Eos # (Auto) 0.3 Baso # (Auto) 0.1 Immature Gran # (Auto) 0.02 H Absolute Nucleated RBC 0.00 Immature Gran % 0 Nucleated RBC % 0 Sodium 140 Potassium 3.8 Chloride 106 Carbon Dioxide 25.6 Anion Gap 8 BUN 15 Creatinine 1.2 Estim Creat Clear Calc 104.2 eGFR > 60 BUN/Creatinine Ratio 13 Glucose 95 Calculated Osmolality 280 Calcium 9.5 Quality Measures Quality Measures VTE prophylaxis Assessment & Plan Assessment Current Active Medications: Generic Name Dose Route Start Last Admin Trade Name Freq PRN Reason Stop Dose Admin Acetaminophen 650 mg 06/10/24 16:19 06/11/24 22:43 Acetaminophen 325 Mg Tablet PO 07/08/24 16:15 650 mg Q6H PRN Administration Fever >100.3 Hydrocodone Bitart/Acetaminophen 1 tab 06/11/24 13:27 Hydrocodone/Apap 5/325 Tablet PO 06/16/24 13:26 Q6HR PRN Pain 6-10 Aspirin 81 mg 06/09/24 09:00 06/12/24 09:26 Aspirin Ec 81 Mg Tabec PO 07/09/24 08:59 81 mg QDAY CARRILLO Administration Atorvastatin Calcium 80 mg 06/09/24 21:00 06/11/24 20:21 Atorvastatin Calcium 20 Mg Tablet PO 07/09/24 20:59 80 mg HS CARRILLO Administration Clopidogrel Bisulfate 75 mg 06/09/24 14:15 06/12/24 09:27 Clopidogrel Bisulfate 75 Mg Tablet PO 07/09/24 14:14 75 mg QDAY CARRILLO Administration Docusate Sodium 100 mg 06/08/24 16:16 06/11/24 08:13 Docusate Sod 100 Mg Capsule PO 07/08/24 16:15 100 mg QDAY PRN Administration CONSTIPATION Protocol Labetalol HCl 10 mg 06/08/24 16:23 Labetalol Inj 5 Mg/Ml Vial 20 Ml IVP 07/08/24 16:22 X1 PRN sbp>220 Lisinopril 20 mg 06/09/24 15:30 06/12/24 09:26 Lisinopril 20 Mg Tablet PO 07/09/24 15:29 20 mg QDAY CARRILLO Administration Ondansetron HCl 4 mg 06/08/24 16:16 Ondansetron Inj 2 Mg/Ml Inj 2 Ml IV 07/08/24 16:15 Q6H PRN NAUSEA OR VOMITING Protocol Plan #Acute right thalamic infarct CT head showed mildly prominent posterior opacified sagittal sinus, negative for acute hemorrhage, mass effect or midline shift brain MRI showed 16mm acute right thalamic infarct, prominent increased white matter signal. Carotid Doppler ultrasound showed right and left carotids with 0-10% stenosis Plan: ? Continue atorvastatin 80 mg daily ? Continue Plavix 75 mg p.o. daily ? Continue aspirin 81 mg p.o. daily ? Continue physical #Rule out acute demyelinating disease Brain MRI showed 16 mm acute right thalamic infarct and prominent white matter signal Plan: ? IR fluoroscopy LP ordered ? MRI cervical with and without contrast ? CSF studies ordered Patient discussed with my attending Dr Sarahi Fulton MD PGY-3 Disclaimer: Despite multiple revisions, due to the dictation software being used, the document bellow may not be free of grammatical errors including phonetic/typographic errors. However, this does not deter from our commitment to providing health care in the patient's best interest in mind. Attending Provider Attestation/Addendum Have seen and examined the patient at the bedside and I agree with the resident's findings, assessment and plan of care. Continue with the current management. Patient is stable for discharge to rehab in [place], follow-up with me in 2 weeks, plan to do a repeat lumbar puncture as an outpatient.
== END 2024-06-12 13:51 | disposition skilled nursing facility (03) | DRG 65 ==
LOC: SERX 15:31 → SERHOLD 16:35 → S2NX 19:36
PROVIDERS: Nurse Practitioner Family; Admitting Provider Student in an Organized Health Care Education/Training Program; Emergency Provider Emergency Medicine; PCP Family Medicine; Visit Provider Internal Medicine
DX: I63.9 Cerebral infarction, unspecified (principal); G81.94 Hemiplegia, unspecified affecting left nondominant side; R47.81 Slurred speech; E66.01 Morbid (severe) obesity due to excess calories; Z68.39 Body mass index [BMI] 39.0-39.9, adult; I10 Essential (primary) hypertension; N40.0 Benign prostatic hyperplasia without lower urinary tract symptoms; R29.810 Facial weakness
CPT/HCPCS: 36415; 70450; 70551; 72156; 77002; 80048; 80053; 80061; 81001; 82040; 82042; 82607; 82784; 82945; 83036; 83873; 83880; 83916; 84157; 84443; 84484; 85025; 85610; 85730; 86592; 87070; 87086; 87205; 89051; 92610; 93005; 93306; 93880; 97162; 99285; A9579; J0360; A9270